=== PATIENT | female | born 1975 | race Caucasian/White ===

== ENCOUNTER 2021-06-20 10:44 | Inpatient (IN) | payer BC, SELFPAY ==
[2021-06-20] VITALS (9 sets, daily range): BP systolic 118–143; BP diastolic 68–76; PULSE 57–100; RESP 16–20; TEMP 36.6–36.9; O2SAT 96–100; BMI 24.7
--- NOTE | 2021-06-20 11:08 | CT_ITS ---
WS: [id number] CT ABDOMEN PELVIS TECHNIQUE: Contrast-enhanced CT of the abdomen and pelvis with coronal and sagittal reformatted image s. CLINICAL INFORMATION: abd pain COMPARISON: None. DLP: 1053.[address] scans at [facility] use at least one of these dose optimization techniques: automated e xposure control; mA and/or kV adjustment per patient size (includes targeted exams where dose is matc hed to clinical indication); or iterative reconstruction. FINDINGS: Diffuse heterogeneous uterine enhancement. Marked lobulated enlargement of the uterus most compatible with fibroid uterus with multiple enhancing fibroids. Markedly enlarged uterus measures 8.4 x 11.4 x 12.9 CM. Large uterine fibroids impinge on the dorsal aspect of the bladder and cervix. Largest hete rogeneously enhancing fibroids measure 6 to 8 cm with low-attenuation changes. Leiomyosarcoma is not excluded. Recommend GOLD NIB GRINDER consultation for resection. LEFT ovary is not well visualized. RIGHT ovarian cyst measuring 1.8 x 1.8 cm. Distended fluid-filled loops of small bowel in the midabdomen and LEFT upper quadrant with air-fluid levels. Small bowel loops measure up to 3.1 cm compatible with partial small bowel obstruction. This is likely due to compression from the lobulated fibroid uterus or prior adhesions. Transition to norm al caliber small bowel loops near the dome of the uterus. Small amount of free fluid in the [place]-de-[place] c. Normal sigmoid colon. Colon appears decompressed. RIGHT adnexal cyst measuring 1.8 x 1.8 cm. Lung bases are well aerated. Mild diffuse fatty infiltration liver. Mild intrahepatic biliary duct di latation. Mild prominence of the common bile duct measuring 7 mm. Gallbladder appears normal. Normal portal vein and splenic vein. Small amount of perihepatic fluid. Normal spleen. Small esophageal hiat al hernia. Tiny fat-containing umbilical hernia. Normal pancreatic parenchymal enhancement. Normal ca liber abdominal aorta. Celiac and SMA are patent. Adrenal glands are normal. Normal renal parenchymal enhancement. No hydronephrosis. Disc space narrow ing L5-S1. Mild disc bulging L4-L5. CT/CT abdomen pelvis w con* [id number] IMPRESSION: 1. Markedly enlarged heterogeneous lobulated uterus most consistent with fibro id uterus. Numerous large enhancing heterogeneous fibroids. Leiomyosarcoma is n ot excluded. Recommend GOLD NIB GRINDER consultation for resection. 2. LEFT ovary is not well visualized. RIGHT ovarian cystic lesion measuring 1. 8 x 1.8 cm. 3. Large heterogeneous lobular uterus compresses the dorsal aspect of the blad maury and cervix. 4. Small amount of free fluid in the pelvis. 5. Partial small bowel obstruction with air-fluid levels and slightly distende d fluid-filled small bowel in the midabdomen and LEFT upper quadrant. Distal il eum is decompressed. 6. Colon is decompressed. 7. Small esophageal hiatal hernia. 8. Mild intrahepatic biliary duct dilatation. Mild prominence of the common bi le duct measuring 7 mm. No visualized gallbladder calculi. Gallbladder can be f ollowed up with ultrasound. Notified Dez Nieto DO at 06/20/2021 1:21 PM.
--- NOTE | 2021-06-20 11:08 | ECG_ITS ---
[facility] Test Date: 2021-06-20 Pat Name: Genesis David Department: Room: Gender: Female Shift Superintendent: : 1975 Requested By: Dez Garcia Order Number: [id number] Eyad MD: Shruthi Reece M.D. Measurements Intervals [place] Rate: 86 P: 77 OK: 193 QRS: 74 QRSD: 94 T: 55 QT: 385 QTc: 462 Interpretive Statements SINUS RHYTHM LEFT ATRIAL ENLARGEMENT [-0.15mV P-WAVE IN V1/V2] INCOMPLETE RIGHT BUNDLE BRANCH BLOCK [90+ ms QRS DURATION, TERMINAL R IN V1/V2, 40+ ms S IN I/aVL/V4/V5/V6] Compared to ECG 01/04/2016 16:08:16 No significant changes Electronically Signed On 06-20-2021 22:43:35 CDT by Shruthi Reece M.D. [id number]
--- NOTE | 2021-06-20 11:11 | W.ED.ABDPA2 ---
HPI - Abdominal Pain General: Chief Complaint: Abdominal Pain Stated Complaint: stomach pain/vomiting Time Seen by Provider: 06/20/21 11:08 Source: patient Mode of arrival: ambulatory Limitations: no limitations History of Present Illness: 45-year-old female comes in complaining of 2 days of nausea vomiting generalized epigastric periumbilical abdominal pain which does not localize really well. She not had any hematochezia or melena but has had quite a bit of bilious-like vomiting. Denies dysuria urgency or frequency or fever MD elicited complaint: abdominal pain Pertinent past history: none Onset (ago): day(s) (2) Location: Epigastric and Periumbilical Severity: mild Quality: cramping Radiation: none Migration to: no migration Exacerbating factors: eating, movement and other (palpation) Relieving factors: nothing Associated Symptoms: Reports GI cramping, nausea and poor appetite; Denies anorexia, belching, bloating, change in bowel habits, change in stool character, chills, coffee ground emesis, constipation, diarrhea, dyspepsia, dysuria, excessive flatus, fever(s), heartburn, hematochezia, hematuria, hematemesis, fecal incontinence, loose stools, melena, syncope and vomiting Related Data: Date of Last Menstrual Period: 06/09/21 Review of Systems Const: Denies: fever(s) or chills ENMT: Denies: throat pain, ear or mastoid pain, nasal discharge or nasal congestion Card: Denies: syncope Resp: Denies: dyspnea, productive cough or non-productive cough GI: Reports: nausea and GI cramping; Denies: vomiting, hematemesis, coffee ground emesis, heartburn, diarrhea, constipation, bloating, belching, excessive flatus, fecal incontinence, change in bowel habits, change in stool character, hematochezia or melena : Denies: dysuria or hematuria Skin/Breast: Denies: rash or pruritus PFSH ED PFSH: Medical History No pertinent past medical history Surgical History Hx of section Social History Smoking and tobacco status: never smoked Alcohol intake: unknown Female Reproductive History: Date of last menstrual period: 06/09/21 Physical Exam Const: GENERAL APPEARANCE: cooperative and comfortable ORIENTATION/CONSCIOUSNESS: Yes awake, Yes oriented to person, Yes oriented to place and Yes oriented to time HENMT: COMMON NORMALS: normocephalic, atraumatic and hearing grossly normal bilaterally HEAD & SCALP: normocephalic and atraumatic Neck/C-Spine: COMMON NORMALS: no JVD Resp: COMMON NORMALS: normal respiratory effort, No retractions, No use of accessory muscles and clear to auscultation bilaterally AUSCULTATION: clear to auscultation bilaterally Cardio: COMMON NORMALS: no JVD, regular rate, regular rhythm and No murmurs present (Cardio) RATE: regular rate RHYTHM: regular rhythm GI: COMMON NORMALS: No hepatosplenomegaly present AUSCULTATION: Yes Hypoactive bowel sounds present PALPATION: Yes Tenderness to palpation present (GI) (difuse), No Guarding due to palpation present (GI) and Yes No hepatosplenomegaly present : COMMON NORMALS: Yes no CVA tenderness BLADDER/KIDNEY EXAM: Yes no CVA tenderness Back/Pelvis: COMMON NORMALS: no CVA tenderness Extremity: COMMON NORMALS: normal to inspection, capillary refill normal, no clubbing, cyanosis or edema, no calf tenderness and no pedal edema Neuro: SENSORIUM/ORIENTATION: Yes oriented to person, Yes oriented to place and Yes oriented to time Skin: COMMON NORMALS: no rashes or lesions noted GENERAL SKIN EXAM: no rashes or lesions noted Course Vital Signs: Vital signs: Vital Signs Temperature 97.9 F 06/20/21 10:59 Pulse Rate 79 06/20/21 13:04 Respiratory Rate 16 06/20/21 13:04 Blood Pressure 120/72 06/20/21 13:04 Pulse Oximetry 99 06/20/21 13:04 MDM - Abdominal Pain Medical Decision Making Discussed with Dr. Alfa Matthews and Dr. Mcdonald as well as Dr. Romo. Dr. Grimm was concerned that the enlarged uterus was causing a bowel obstruction occurring and does not believe that that is actually the case ultimately decided to admit to the hospitalist service consult surgery and Guynn. The plan at this point is to treat as a small bowel obstruction if surgery is pursued then gynecology may perform hysterectomy in the same setting. Patient has an NG we also placed a Parikh since the enlarged uterus significantly compresses her bladder. Orders are written Dr. cadet will be the attending. Medical Records I reviewed the patient's medical records. Lab Data I reviewed the patient's lab results. : 06/20/21 11:30 06/20/21 13:33 Labs/Radiology: Radiology Impressions Abdomen/Pelvis CT 06/20/21 11:08 IMPRESSION: 1. Markedly enlarged heterogeneous lobulated uterus most consistent with fibroid uterus. Numerous large enhancing heterogeneous fibroids. Leiomyosarcoma is not excluded. Recommend CHIEF RESOURCE OFFICER consultation for resection. 2. LEFT ovary is not well visualized. RIGHT ovarian cystic lesion measuring 1.8 x 1.8 cm. 3. Large heterogeneous lobular uterus compresses the dorsal aspect of the bladder and cervix. 4. Small amount of free fluid in the pelvis. 5. Partial small bowel obstruction with air-fluid levels and slightly distended fluid-filled small bowel in the midabdomen and LEFT upper quadrant. Distal ileum is decompressed. 6. Colon is decompressed. 7. Small esophageal hiatal hernia. 8. Mild intrahepatic biliary duct dilatation. Mild prominence of the common bile duct measuring 7 mm. No visualized gallbladder calculi. Gallbladder can be followed up with ultrasound. Notified Dez Nieto DO at 06/20/2021 1:21 PM. Chest X-Ray 06/20/21 13:46 IMPRESSION: Nasogastric tube placement as above. Laboratory Results WBC 4.8 10^3/uL (4.0-10.0) 06/20/21 11:30 RBC 3.89 10^6/uL (4.1-5.3) L 06/20/21 11:30 Hgb 10.1 g/dL (11.5-15.3) L 06/20/21 11:30 Hct 33.5 % (37.0-47.0) L 06/20/21 11:30 MCV 86.1 fl (81-99) 06/20/21 11:30 MCH 26.0 pg (28.0-34.0) L 06/20/21 11:30 MCHC 30.1 g/dL (30.0-36.0) 06/20/21 11:30 RDW 16.0 % (12.1-15.1) H 06/20/21 11:30 Plt Count 143 10^3/cmm (130-400) 06/20/21 11:30 MPV 12.4 fL (7.4-10.4) H 06/20/21 11:30 Neut % (Auto) 84.4 % 06/20/21 11:30 Lymph % (Auto) 11.0 % 06/20/21 11:30 [place] % (Auto) 4.0 % 06/20/21 11:30 Eos % (Auto) 0.0 % 06/20/21 11:30 Baso % (Auto) 0.4 % 06/20/21 11:30 Neut # (Auto) 4.05 10^3/uL (1.8-7.7) 06/20/21 11:30 Lymph # (Auto) 0.5 10^3/uL (0.8-4.8) L 06/20/21 11:30 [place] # (Auto) 0.2 10^3/uL (0.2-0.9) 06/20/21 11:30 Eos # (Auto) 0.0 10^3/uL (0.0-0.8) 06/20/21 11:30 Baso # (Auto) 0.0 10^3/uL (0.0-0.1) 06/20/21 11:30 Nucleated RBC % (auto) 0 % 06/20/21 11:30 Nucleated RBCs # 0.0 /100WBC 06/20/21 11:30 Sodium 138 mmol/L (136-145) 06/20/21 13:33 Potassium 3.7 mmol/L (3.5-5.1) 06/20/21 13:33 Chloride 103 mmol/L (98-107) 06/20/21 13:33 Carbon Dioxide 20 mmol/L (22-29) L 06/20/21 13:33 Anion Gap 18.7 (5-19) 06/20/21 13:33 BUN 11 mg/dL (6-20) 06/20/21 13:33 Creatinine 0.6 mg/dL (0.5-0.9) 06/20/21 13:33 GFR Calculation 107.2 mL/min (90-130) 06/20/21 13:33 Glucose 99 mg/dL (65-115) 06/20/21 13:33 Calculated Osmolality 285 mOsm/kg (285-295) 06/20/21 13:33 Lactic Acid 1.2 mmol/L (0.5-2.2) 06/20/21 11:30 Calcium 9.0 mg/dL (8.5-10.5) 06/20/21 13:33 Total Bilirubin 0.3 mg/dL (0.15-1.2) 06/20/21 13:33 AST 28 U/L (0-32) 06/20/21 13:33 ALT 24 U/L (0-33) 06/20/21 13:33 Alkaline Phosphatase 76 IU/L (35-105) 06/20/21 13:33 Total Protein 7.2 g/dL (6.6-8.7) 06/20/21 13:33 Albumin 3.8 g/dL (3.5-5.2) 06/20/21 13:33 Globulin 3.4 g/dL (1.3-4.6) 06/20/21 13:33 Lipase 62 U/L (13-60) H 06/20/21 13:33 HCG, Qual Negative (Negative) 06/20/21 11:30 Urine Color Yellow (Yellow) 06/20/21 12:01 Urine Appearance Clear (CLEAR) 06/20/21 12:01 Urine pH 5 (5-7) 06/20/21 12:01 Ur Specific [place] 1.020 (1.005-1.030) 06/20/21 12:01 Urine Protein Neg (Negative) 06/20/21 12:01 Urine Glucose (UA) Norm (Normal) 06/20/21 12:01 Urine Ketones 2+ (Negative) H 06/20/21 12:01 Urine Blood Neg (Negative) 06/20/21 12:01 Urine Nitrate Negative (Negative) 06/20/21 12:01 Urine Bilirubin Neg (Negative) 06/20/21 12:01 Urine Urobilinogen Neg mg/dL (Negative) 06/20/21 12:01 Ur Leukocyte Esterase Negative (Negative) 06/20/21 12:01 Discharge Plan Discharge Patient Disposition: Admitted As Inpatient Clinical Impression: Small bowel obstruction, Hx of section, Fibroid, uterine Condition: Stable Prescriptions: No Action No Known Home Medications 0RF Coding Level of Care Code ED Heater Operator for Chg Fwd Exam Comprehensive
[2021-06-20] MEDS: ondansetron 2 mg/ML SDV 2 mL 4 MG IVP ×2 (11:24→17:49)
[2021-06-20] MEDS: morphine 4 mg/mL SDV 1 mL IVP ×3 (11:24→22:37)
[2021-06-20] MEDS: sodium chloride 0.9% 1,000 ML 999 ML IV ×2 (11:25→12:58)
[2021-06-20 11:41] LABS: Basophils % 0.4 %; Hematocrit 33.5 % (37.0-47.0); Hemoglobin 10.1 g/dL (11.5-15.3); Lymphocytes # 0.5 10^3/uL (0.8-4.8); Mean Corpuscular HGB Conc 30.1 g/dL (30.0-36.0); Mean Corpuscular Volume 86.1 fl (81-99); Mean Platelet Volume 12.4 fL (7.4-10.4); Monocytes # 0.2 10^3/uL (0.2-0.9); Neutrophils # 4.05 10^3/uL (1.8-7.7); Neutrophils % 84.4 %; Nucleated Red Blood Cells % 0 %; Platelet Count 143 10^3/cmm (130-400); Red Blood Count 3.89 10^6/uL (4.1-5.3); White Blood Count 4.8 10^3/uL (4.0-10.0)
[2021-06-20 11:50] LABS: Lactic Sepsis W/Reflex 1.2 mmol/L (0.5-2.2)
[2021-06-20 11:51] LABS: HCG, Serum Qual Negative (Negative)
[2021-06-20 12:08] LABS: Add Urine Microscopic? NO; Charge for UA Resulting for Rev
[2021-06-20 12:28] LABS: Bilirubin Urine Neg (Negative); Blood Urine Neg (Negative); Glucose Urine UA Norm (Normal); Ketones Urine 2+ (Negative); Leukocyte Esterase Urine Negative (Negative); Nitrate Urine Negative (Negative); Protein Urine Neg (Negative); Urine Appearance Clear (CLEAR); Urine Color Yellow (Yellow); Urobilinogen Urine Neg (Negative); pH Urine 5 (5-7)
[2021-06-20] MEDS: iohexol 300 mg/mL 100 mL Btl IV (12:34)
[2021-06-20] MEDS: morphine 4 mg/mL SDV 1 mL 6 MG IVP (13:18)
--- NOTE | 2021-06-20 13:46 | XR_ITS ---
WS: [id number] XR chest 1V portable [id number] REASON FOR EXAM: NG TUBE PLACEMENT FINDINGS: Nasogastric tube is been placed. The tip is in a position consistent with the body of the stomach. No chest abnormality identified. XR/XR chest 1V portable [id number] IMPRESSION: Nasogastric tube placement as above.
[2021-06-20 14:01] LABS: Alanine Aminotransferase 24 U/L (0-33); Albumin Level 3.8 g/dL (3.5-5.2); Alkaline Phosphatase 76 IU/L (35-105); Anion Gap 18.7 (5-19); Aspartate Amino Transferase 28 U/L (0-32); Blood Urea Nitrogen 11 mg/dL (6-20); Carbon Dioxide 20 mmol/L (22-29); Chloride 103 mmol/L (98-107); Globulin 3.4 g/dL (1.3-4.6); Glomerular Filtration Rate 107.2 mL/min (90-130); Glucose 99 mg/dL (65-115); Lipase 62 U/L (13-60); Osmolality Calculated 285 mOsm/kg (285-295); Potassium 3.7 mmol/L (3.5-5.1); Sodium 138 mmol/L (136-145); Total Bilirubin 0.3 mg/dL (0.15-1.2); Total Protein 7.2 g/dL (6.6-8.7)
--- NOTE | 2021-06-20 14:31 | P.CONIM_ITS ---
Providers/Reason For Consult Consulting Physician/Specialty*: Dorian Mcdonald MD Reason for Consult*: Small bowel obstruction Requesting Physician: Dr. Nieto History of Present Illness History of Present Illness Chief Complaint: Abdominal pain History of present illness: Ms. Genesis David is a pleasant 45 year old female presents to the emergency department with worsening abdominal pain for the past couple of days mostly Dull associated nausea and vomiting and she does report history of chronic back pain as well, the pain mostly in the center part of the abdomen and the lower compartment, nothing seems to make it better or worse except laying flat and massaging her abdomen. Patient did have a bowel movement and passed gas ye sterday evening. As her pain got worse came to the ER for further work-up and blood work was done showed WBC count of 4.8, hematocrit 33.5, platelet 143. Sodium 138 potassium 3.7 and serum creatinine 0.6. Patient also undergone a CT scan of the abdomen pelvis that did show 1.? Markedly enlarged heterogeneous lobulated uterus most consistent with fibroid uterus. Numerous large enhancing heterogeneous fibroids. Leiomyosarcoma is not excluded. Recommend REGULATOR OPERATOR consultation for resection. 2.? LEFT ovary is not well visualized. RIGHT ovarian cystic lesion measuring 1.8 x 1.8 cm. 3.? Large heterogeneous lobular uterus compresses the dorsal aspect of the bladder and cervix. 4.? Small amount of free fluid in the pelvis. 5.? Partial small bowel obstruction with air-fluid levels and slightly distended fluid-filled small bowel in the midabdomen and LEFT upper quadrant. Distal ileum is decompressed. 6.? Colon is decompressed. 7.? Small esophageal hiatal hernia. 8.? Mild intrahepatic biliary duct dilatation. Mild prominence of the common bile duct measuring 7 mm. No visualized gallbladder calculi. Gallbladder can be followed up with ultrasound. From further history patient reports that she has been having pain going on for years and over the past couple of days got worse. She did have a gynecological procedure before in the form of left oophorectomy but she did lose her insurance for quite some time and she is not aware of any uterine pathology. Patient has never been hospitalized before and requiring NG placement General surgery was consulted due to the concern of potential bowel obstruction. Patient was seen and evaluated emergency department room #14. ? Review of Systems General: Reports: 10 or more systems reviewed and unremarkable except in HPI and below Medications/Allergies Home Medications Medication Instructions Recorded Confirmed Last Taken Type No Known Home Medications 06/20/21 06/20/21 Unknown History Allergies Allergy/AdvReac Type Severity Reaction Status Date / Time No Known Allergies Allergy Verified 06/20/21 14:54 PFSH Acute PFSH: Medical History No pertinent past medical history Surgical History Hx of section Social History Smoking and tobacco status: never smoked Alcohol intake: unknown Female Reproductive History: Date of last menstrual period: 06/09/21 Vitals/I&O/Wt Last Vital Signs Temp 97.9 F 06/20/21 10:59 Pulse 79 06/20/21 13:04 Resp 16 06/20/21 13:04 BP 120/72 06/20/21 13:04 Pulse Ox 99 06/20/21 13:04 06/19/21 06/20/21 06/20/21 22:59 06:59 14:59 Intake Total 1000 / 1000 Balance 1000 / 1000 Weight last 48 hrs Weight 140 lb Physical Exam Const: COMMON NORMALS: no acute distress and patient oriented x3 GENERAL APPEARANCE: cooperative ORIENTATION/CONSCIOUSNESS: Yes awake, Yes oriented to person, Yes oriented to place and Yes oriented to time HENMT: COMMON NORMALS: normocephalic HEAD & SCALP: normocephalic NOSE: Other nasal findings present (NG in place) Eye: COMMON NORMALS: Equal, round and reactive pupils present and no scleral icterus PUPIL: Yes Equal, round and reactive pupils present Lymph: LYMPHATIC: no lymphadenopathy noted Chest: COMMONS NORMALS: normal inspection of the chest Resp: COMMON NORMALS: normal respiratory effort and clear to auscultation bilaterally AUSCULTATION: clear to auscultation bilaterally Cardio: COMMON NORMALS: S1 normal heart sound present and S2 normal heart sound present; negative for No murmurs present (Cardio) HEART SOUNDS: S1 normal heart sound present and S2 normal heart sound present GI: COMMON NORMALS: Soft to palpation; negative for No hepatosplenomegaly present INSPECTION: Yes normal to inspection PALPATION: Yes Soft to palpation, No Firmness to palpation present (GI), No Tenderness to palpation present (GI), No Guarding due to palpation present (GI), No Rigid due to palpation and No No hepatosplenomegaly present OTHER: Palpable mass in the suprapubic area reaches all the way midway between the pubis and the umbilicus likely underlying enlarged uterus, firm in consistency yet tender with limited mobility, nonpulsatile. Neuro: COMMON NORMALS: patient oriented x3 SENSORIUM/ORIENTATION: Yes oriented to person, Yes oriented to place and Yes oriented to time Psych: COMMON NORMALS: mental status grossly normal Skin: COMMON NORMALS: no rashes or lesions noted GENERAL SKIN EXAM: no rashes or lesions noted Data : 06/20/21 11:30 06/20/21 13:33 A&P Assessment and plan (1) Partial small bowel obstruction: After thorough history physical examination and reviewing the chart and images with my personal interpretation. Of the CT scan of the abdomen pelvis likely the enlarged uterus is causing some compression on the bowels that causing a potential partial bowel obstruction. I cannot appreciate stools in the rectum and gas, technically the patient is not completely obstructed. I do not see distinct transition point on the CT scan. No acute surgical intervention required at this point NG to low intermittent wall suction Repeat labs in the morning IV fluid resuscitation Strict I's and O's Repeated physical examination We will defer to gynecology service for further evaluation of patient's uterine pathology Assurance and education All questions have been answered and all concerns have been addressed to patient's satisfaction. Status: Acute Consult Attestations Medical Necessity Statement: Per admitting service Time Spent in Patient Care: 16 - 35 minutes Coding Level of Care Code Acute Marketing Development Representative for Laura Robledo Diagnoses Partial small bowel obstruction K56.600
--- NOTE | 2021-06-20 15:53 | PM.HP ---
Providers/Chief Complaint Admitting Physician: Kristen King MD Chief Complaint: stomach pain/vomiting History of Present Illness Genesis David is a 45 year old female who presented to the emergency room with abdominal pain, nausea, vomiting. She has had intermittent mildly similar symptoms off and on though never to this degree. She has had upper abdominal pain described as a discomfort for several days. She has a fairly high pain threshold and was uncomfortable but did not think much of it. Pain radiated into her back. Nausea developed a couple of days ago along with a sensation of being too full to eat. Yesterday she started vomiting and has had multiple episodes of vomiting in the last 24 hours. She denies any fever. She has had decreased soft formed stool output over the last few days compared to usual. Last bowel movement was yesterday morning and it was soft. No flatus since then. She describes decreased urine output at times feeling like she has to go evidently having a small amount of urine come out. No reports of bowel or bladder incontinence. The pain and frequency of vomiting became severe enough that her insisted that she come to the emergency room for evaluation. Here she was found to have partial small bowel obstruction on CT imaging with a significantly enlarged and lobular uterus compressing on both bowel and bladder. Hospitalist were called for admission. NG tube was placed and Parikh catheter was placed. Both surgery and PRICING CONSULTANT have been consulted to assist with management. Patient's last menstrual cycle was around 3 weeks ago. She describes quite irregular periods over the last 3 years, maybe up to 5 years. Describes periods lasting from a week to 3 weeks at a time, sometimes even longer. Interval between cycles will be a couple of days to a few weeks. Describes using 2 packages of 50-60 pads per cycle. She has never sought medical care for this primarily because it became a definitive problem during a timeframe in which she did not have insurance as well as around the time that COVID hit. She says that after her oophorectomy she had fairly normal periods lasting 3 to 5 days and what she would describe is normal flow until sometime between 3 to 5 years ago. She took control pills for several months after her oophorectomy but has not been on any hormonal treatments since then. 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 She has been working overtime for quite a while at the facility. In the last few weeks she has felt overall more tired than usual. She wears an N95 mask and until recently also a face shield for every shift. She is not Covid vaccinated. No recent Covid symptoms. Review of Systems Const: Reports: change in appetite and fatigue; Denies: fever(s), chills or change in weight Eyes: Reports: blurry vision (During NG tube placement) ENMT: Reports: other (Frequently eats ice/craves ice); Denies: throat pain or nasal congestion Card: Reports: other (Describes chest wall pain which she thinks is from her bra); Denies: chest pain, palpitations, edema, dyspnea on exertion or orthopnea Resp: Reports: dyspnea (From the degree of nausea and discomfort otherwise not SOB); Denies: productive cough, non-productive cough or wheezing GI: Reports: abdominal pain, nausea, vomiting, early satiety, bloating and change in bowel habits; Denies: diarrhea, constipation or fecal incontinence : Reports: difficulty voiding (Sometimes feels like she has to urinate but only urinates a small amount), oliguria, irregular period and metrorrhagia; Denies: dribbling, hematuria or vaginal bleeding (None presently though describes heavy prolonged periods) Musc: Reports: back pain Skin/Breast: Denies: rash, pruritus or sores Neuro: Reports: dizziness (Maybe a little bit with nausea/vomiting); Denies: numbness in extremities, weakness in extremities or difficulty walking Psych: Denies: anxiety or depression Endo: Reports: hot flashes Anmol/Lymph: Denies: easy bruising or easy bleeding Medications/Allergies Home Medications Medication Instructions Recorded Confirmed Last Taken Type No Known Home Medications 06/20/21 06/20/21 Unknown History Allergies Allergy/AdvReac Type Severity Reaction Status Date / Time No Known Allergies Allergy Verified 06/20/21 14:54 PFSH Acute PFSH: Medical History (Updated 06/20/21 @ 17:56 by Kristen King MD) History of ovarian cyst left oophorectomy secondary to cysts, known cyst on right ovary Surgical History (Updated 06/20/21 @ 17:03 by Kristen King MD) History of left oophorectomy due to ovarian cysts History of tonsillectomy History of wisdom tooth extraction Hx of section Family History (Updated 06/20/21 @ 17:06 by Kristen King MD) Mother Uterine enlargement History of hysterectomy Grandmother Uterine enlargement History of hysterectomy Father Murmur Denies family history of CAD (coronary artery disease) Anesthesia complication Bleeding disorder Uterine cancer Social History (Updated 06/20/21 @ 17:05 by Kristen King MD) Smoking and tobacco status: never smoked Alcohol intake: current Alcohol intake frequency: holidays/special occasions only Substance/Drug Use: never Household members: spouse Current occupational status: employed 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 [employer] Female Reproductive History: Date of last menstrual period: 06/09/21 control method: none : 1 Para: 1 Vitals/I&O/Wt Last Vital Signs Temp 97.9 F 06/20/21 10:59 Pulse 100 06/20/21 15:00 Resp 16 06/20/21 15:00 BP 118/68 06/20/21 15:00 Pulse Ox 100 06/20/21 15:00 06/20/21 06/20/21 06/20/21 06:59 14:59 22:59 Intake Total 1000 / 1000 Balance 1000 / 1000 Weight last 48 hrs Weight 63.503 kg Physical Exam Narrative: Constitutional: Awake and alert, flushed cheeks, cooperative, looks like she does not feel well HEENT: Normocephalic, atraumatic, pupils are equal reactive, mild tearing noted of the eyes, NG tube is in place in the left nares, oropharynx with dry mucous membranes, good dentition, pale mucosa Neck: Supple Respiratory: Clear to auscultation bilaterally Cardiovascular: Regular rate and rhythm, systolic murmur noted throughout the precordium but loudest at right upper sternal border radiating into the neck, 2+ pulses Abdomen: Soft, mild epigastric tenderness, lumpy fullness noted in the lower abdominal/suprapubic area, absent bowel sounds during my evaluation : Parikh catheter is noted Extremities: No pitting edema or calf tenderness Skin: Pale other than her flushed cheeks Neuro: Speech clear, face symmetric, moves all extremities, handgrip equal, no abnormal movements Psych: Normal affect Urinary Catheter Management: Parikh: Cath Placed During This Visit: yes Urinary Catheter Date of Insertion: 06/20/21 Urinary Catheter Time of Insertion: 14:55 Data : 06/20/21 11:30 06/20/21 13:33 Other Labs: Radiology Impressions Abdomen/Pelvis CT 06/20/21 11:08 IMPRESSION: 1. Markedly enlarged heterogeneous lobulated uterus most consistent with fibroid uterus. Numerous large enhancing heterogeneous fibroids. Leiomyosarcoma is not excluded. Recommend VISUALIZATION DEVELOPER consultation for resection. 2. LEFT ovary is not well visualized. RIGHT ovarian cystic lesion measuring 1.8 x 1.8 cm. 3. Large heterogeneous lobular uterus compresses the dorsal aspect of the bladder and cervix. 4. Small amount of free fluid in the pelvis. 5. Partial small bowel obstruction with air-fluid levels and slightly distended fluid-filled small bowel in the midabdomen and LEFT upper quadrant. Distal ileum is decompressed. 6. Colon is decompressed. 7. Small esophageal hiatal hernia. 8. Mild intrahepatic biliary duct dilatation. Mild prominence of the common bile duct measuring 7 mm. No visualized gallbladder calculi. Gallbladder can be followed up with ultrasound. Chest X-Ray 06/20/21 13:46 IMPRESSION: Nasogastric tube placement as above. Laboratory Results WBC 4.8 10^3/uL (4.0-10.0) 06/20/21 11:30 RBC 3.89 10^6/uL (4.1-5.3) L 06/20/21 11:30 Hgb 10.1 g/dL (11.5-15.3) L 06/20/21 11:30 Hct 33.5 % (37.0-47.0) L 06/20/21 11:30 MCV 86.1 fl (81-99) 06/20/21 11:30 MCH 26.0 pg (28.0-34.0) L 06/20/21 11:30 MCHC 30.1 g/dL (30.0-36.0) 06/20/21 11:30 RDW 16.0 % (12.1-15.1) H 06/20/21 11:30 Plt Count 143 10^3/cmm (130-400) 06/20/21 11:30 MPV 12.4 fL (7.4-10.4) H 06/20/21 11:30 Neut % (Auto) 84.4 % 06/20/21 11:30 Lymph % (Auto) 11.0 % 06/20/21 11:30 [place] % (Auto) 4.0 % 06/20/21 11:30 Eos % (Auto) 0.0 % 06/20/21 11:30 Baso % (Auto) 0.4 % 06/20/21 11:30 Neut # (Auto) 4.05 10^3/uL (1.8-7.7) 06/20/21 11:30 Lymph # (Auto) 0.5 10^3/uL (0.8-4.8) L 06/20/21 11:30 [place] # (Auto) 0.2 10^3/uL (0.2-0.9) 06/20/21 11:30 Eos # (Auto) 0.0 10^3/uL (0.0-0.8) 06/20/21 11:30 Baso # (Auto) 0.0 10^3/uL (0.0-0.1) 06/20/21 11:30 Nucleated RBC % (auto) 0 % 06/20/21 11:30 Nucleated RBCs # 0.0 /100WBC 06/20/21 11:30 Sodium 138 mmol/L (136-145) 06/20/21 13:33 Potassium 3.7 mmol/L (3.5-5.1) 06/20/21 13:33 Chloride 103 mmol/L (98-107) 06/20/21 13:33 Carbon Dioxide 20 mmol/L (22-29) L 06/20/21 13:33 Anion Gap 18.7 (5-19) 06/20/21 13:33 BUN 11 mg/dL (6-20) 06/20/21 13:33 Creatinine 0.6 mg/dL (0.5-0.9) 06/20/21 13:33 GFR Calculation 107.2 mL/min (90-130) 06/20/21 13:33 Glucose 99 mg/dL (65-115) 06/20/21 13:33 Calculated Osmolality 285 mOsm/kg (285-295) 06/20/21 13:33 Lactic Acid 1.2 mmol/L (0.5-2.2) 06/20/21 11:30 Calcium 9.0 mg/dL (8.5-10.5) 06/20/21 13:33 Total Bilirubin 0.3 mg/dL (0.15-1.2) 06/20/21 13:33 AST 28 U/L (0-32) 06/20/21 13:33 ALT 24 U/L (0-33) 06/20/21 13:33 Alkaline Phosphatase 76 IU/L (35-105) 06/20/21 13:33 Total Protein 7.2 g/dL (6.6-8.7) 06/20/21 13:33 Albumin 3.8 g/dL (3.5-5.2) 06/20/21 13:33 Globulin 3.4 g/dL (1.3-4.6) 06/20/21 13:33 Lipase 62 U/L (13-60) H 06/20/21 13:33 HCG, Qual Negative (Negative) 06/20/21 11:30 Urine Color Yellow (Yellow) 06/20/21 12:01 Urine Appearance Clear (CLEAR) 06/20/21 12:01 Urine pH 5 (5-7) 06/20/21 12:01 Ur Specific [place] 1.020 (1.005-1.030) 06/20/21 12:01 Urine Protein Neg (Negative) 06/20/21 12:01 Urine Glucose (UA) Norm (Normal) 06/20/21 12:01 Urine Ketones 2+ (Negative) H 06/20/21 12:01 Urine Blood Neg (Negative) 06/20/21 12:01 Urine Nitrate Negative (Negative) 06/20/21 12:01 Urine Bilirubin Neg (Negative) 06/20/21 12:01 Urine Urobilinogen Neg mg/dL (Negative) 06/20/21 12:01 Ur Leukocyte Esterase Negative (Negative) 06/20/21 12:01 A&P Assessment and plan (1) Partial small bowel obstruction: Associated with pain, nausea, vomiting, change in bowel function and dehydration Imaging report from radiology appears to show this is due to compression from uterine enlargement though unable to rule out adhesions or other pathology beyond this presently Status: Acute (2) Enlarged uterus: Lobulated, fibroid appearance compressing bowel and bladder on imaging studies Reports a family history of significant uterine enlargement but no history of known uterine cancer Status: Acute (3) Murmur: Noted on examination, likely functional murmur although loudest in the upper sternal border radiating into the neck concerning for aortic stenosis Status: Acute (4) Anemia: Normocytic iron deficiency secondary to chronic losses from menorrhagia Suspect current values are higher than baseline due to dehydration Describes classic pica Status: Acute Qualifiers: Anemia type: iron deficiency Iron deficiency anemia type: chronic blood loss Qualified Code(s): D50.0 - Iron deficiency anemia secondary to blood loss (chronic) (5) Menorrhagia with irregular cycle: Going on for several years without work-up to date nor attempted treatment due to lack of insurance followed by impact of Covid pandemic Status: Chronic Plan Mild intrahepatic billiary ductal dilitation with common bile duct at 7mm, without abnormal liver enzymes Inpatient admission Surgical consultation PRICING CONSULTANT consultation Continue NG tube management KUB in the morning Parikh catheter secondary to bladder compression and need to monitor urine output IV fluids Antiemetics and pain medication as needed Bowel regimen when okay to begin otherwise Type and screen, check TIBC Echocardiogram SCDs for DVT prophylaxis Presently no pharmacological DVT prophylaxis secondary to potential need for surgery and reported history of significant menorrhagia and anemia PPI for GI prophylaxis Supportive care otherwise Anticipate discharge home with outpatient follow-up with SHELL MACHINE OPERATOR and possibly surgery, establishment of PCP who can follow up iron levels, cardiac murmur and obtain outpatient GB ultrasound if subsequently indicated Reviewed with patient diagnosis of partial small bowel obstruction, typical management of bowel obstruction with NG tube and attempt at conservative management as potential need for surgical intervention. We also discussed the enlarged uterus with a lobular appearance suggestive of uterine fibroids although unable to rule out cancer via imaging study. We talked about the possibility of hysterectomy either during hospital stay or at some point after discharge depending on clinical course. Reviewed the roles of both PRICING CONSULTANT and surgery in her care and gave her an opportunity to ask questions, which were answered. She was in agreement with plans of care as described above. Case management to assist with finding PCP and other follow up arrangments Full code Attestations Medical Necessity Statement*: Anticipated stay greater than two midnights in a patient with a partial small bowel obstruction and significantly enlarged uterus as potential cause. Currently for conservative management with NG tube placement and close monitoring and other care as noted above. Coding Level of Care Code Acute Social Work Specialist for Chg Fwd Diagnoses Partial small bowel obstruction K56.600 Enlarged uterus N85.2 Anemia D50.0 Anemia type: iron deficiency Iron deficiency anemia type: chronic blood loss Menorrhagia with irregular cycle N92.1 Murmur R01.1
--- NOTE | 2021-06-20 17:17 | USCV_ITS ---
Genesis David Age: 45 Gender: F : 1975 Exam Date: 06/20/2021 20:39 Ordering Phys: Kristen King MD Technologist: Khris Ahuja Exam Location: [facility] Indication: murmur/preop/sob BP: / HR: 81 Rhythm: Sinus Technical Quality: Adequate MEASUREMENTS (Male / Female) Normal Values 2D ECHO LV Diastolic Diameter PLAX 4.2 cm 4.2 - 5.9 / 3.9 - 5.3 cm LV Systolic Diameter PLAX 2.0 cm IVS Diastolic Thickness 1.4 cm 0.6 - 1.0 / 0.6 - 0.9 cm IVS Systolic Thickness 1.4 cm LVPW Diastolic Thickness 1.6 cm 0.6 - 1.0 / 0.6 - 0.9 cm LVPW Systolic Thickness 1.6 cm LVOT Diameter 1.6 cm LV Ejection Fraction 2D Teich 83.7 % LV Ejection Fraction MOD 2C 78.6 % LV Ejection Fraction 2C AL 82.3 % LA Diameter 2.7 cm LA Width 2.6 cm LA Height 4.3 cm RA Width 3.6 cm RA Height 3.4 cm Aorta at Sinotubular Diameter 2.0 cm M-MODE Aortic Annulus Diameter 2.3 cm LA Ao Ratio MM 1.5 MV E Point Septal Separation 0.9 cm DOPPLER AV Peak Velocity 163.3 cm/s LVOT Peak Velocity 134.0 cm/s AV Area Cont Eq vti 1.9 cm squared AV Area Cont Eq pk 1.7 cm squared MV Peak Velocity 126.0 cm/s MV Area PHT 4.6 cm squared Mitral E to A Ratio 1.2 MV E' Velocity 69.5 cm/s Mitral E to MV E' Ratio 12.8 Mitral E to LV E' Lateral Ratio 11.6 Mitral E to LV E' Septal Ratio 14.3 TR Peak Velocity 125.3 cm/s TR Peak Gradient 6.3 mmHg TR Mean Velocity 87.6 cm/s TR Mean Gradient 3.4 mmHg TR Velocity Time Integral 27.6 cm Right Atrial Pressure 5.0 mmHg Pulmonary Artery Systolic Pressu 11.3 mmHg PV Peak Velocity 99.0 cm/s RV Acceleration Time 0.2 s RV Ejection Time 0.3 s RV AcT/ET 0.4 FINDINGS Left Ventricle Normal left ventricular size, systolic function and wall thickness, with no regional wall motion abnormalities. Left ventricular ejection fraction is estimated at 75%. Normal diastolic function. Right Ventricle Normal right ventricular size and systolic function. Right ventricular systolic pressure 11.3 mmHg. Right Atrium Normal right atrial size. Right atrial pressure estimated at 3 mmHg. Left Atrium Normal left atrial size. Mitral Valve Structurally normal mitral valve. No mitral valve stenosis. No significant mitral valve regurgitation. Aortic Valve Structurally normal trileaflet aortic valve. No aortic valve stenosis. No aortic valve regurgitation. Tricuspid Valve Structurally normal tricuspid valve. No tricuspid valve stenosis. Trace tricuspid valve regurgitation. Pulmonic Valve Structurally normal pulmonic valve. No pulmonary valve stenosis. Trace pulmonary valve regurgitation. Pericardium No pericardial effusion. Aorta Normal-sized aortic root. Normal-sized inferior vena cava with normal respiratory variation. CONCLUSIONS 1. Normal left ventricular size, systolic function and wall thickness, with no regional wall motion abnormalities. Left ventricular ejection fraction is estimated at 75%. Normal diastolic function. 2. Normal right ventricular size and systolic function. 3. No significant valvular abnormality. 4. Normal pulmonary artery pressure. 5. No prior similar studies to compare. Lynnette Rodriguez MD (Electronically Signed) Final Date: 21 June 2021 10:48 S
--- NOTE | 2021-06-20 17:35 | PM.OBGYHP ---
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 She states that the upper abdominal pain started on Saturday-06/18/2021 however the nausea and vomiting started the evening of 06/19/2021 which is why she presented to the emergency room. CT scan was performed which showed partial small bowel obstruction but during this evaluation she was noted to have an enlarged uterus. There was some concern as to if the uterus was causing the small bowel obstruction and gynecology was consulted. --- Patient states that she is always had very heavy cycles and was planning on getting this evaluated however work was very busy and she is planning on getting this evaluated towards the end of this year or next year when [place] was hired at her work. She also reports having a lot of cramping. Did not have insurance and so has not been seen or had a gynecological visit since probably 1999. Review of Systems General: Reports: 10 or more systems reviewed and unremarkable except in HPI and below Const: Reports: fatigue; Denies: fever(s), chills, change in appetite, change in weight, malaise or change in sleep pattern Eyes: Denies: change in vision, eye discomfort, eye discharge or seeing flashes ENMT: Denies: throat pain, odynophagia, hoarseness, bleeding gums, ear discharge, nasal discharge or nasal congestion Card: Denies: chest pain, irregular heart rhythm, edema, swelling of feet/ankles, dyspnea on exertion or leg pain with exertion Resp: Denies: dyspnea, productive cough, wheezing or chest congestion GI: Reports: abdominal pain, nausea and vomiting; Denies: heartburn, diarrhea, constipation, change in bowel habits or hematochezia : Reports: dysmenorrhea and change in menstrual flow; Denies: flank pain, dysuria, urinary frequency, urinary urgency, urinary incontinence, genital lesions, vaginal odor, vaginal bleeding, vaginal discharge, prolapse symptoms, dyspareunia or sexual dysfunction Musc: Denies: neck pain, back pain, joint pain, joint swelling or muscle cramps Skin/Breast: Denies: rash, pruritus, breast tenderness, nipple discharge or breast mass Neuro: Denies: headache(s), numbness in extremities or seizure-like activity Psych: Denies: anxiety, depression, mood swings or change in appetite Endo: Denies: cold intolerance, flushing, hot flashes or change in body appearance Anmol/Lymph: Denies: easy bruising, easy bleeding or enlarged lymph nodes All/Imm: Denies: urticaria, tongue swelling, acute wheezing or itchy eyes Medications/Allergies Home Medications Medication Instructions Recorded Confirmed Last Taken Type ferrous sulfate 325 mg (65 mg 325 mg PO DAILY #90 tab 06/22/21 Unknown Rx iron) tablet (Feosol) folic acid 1 mg tablet 1 mg PO DAILY #60 tab 06/22/21 Unknown Rx Allergies Allergy/AdvReac Type Severity Reaction Status Date / Time No Known Allergies Allergy Verified 06/20/21 14:54 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 She states that the ovarian cyst was the size of a cantaloupe. 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 She states that since about 2019 her cycles have been steadily getting heavier and more cramping Sexual History: Sexual History Comment: Deferred today STD History Comment: Denies sexually transmitted diseases Contraception: Contraception History Comment: Has used control pills 3 to 4 months at the age of 20. Denies any hormone use since then. History History History 1 Term 1 Miscarriages/Ectopic 0 0 Living Children 1 Other History: CD X 1 (1995) Vitals/I&O/Wt Last Vital Signs Temp 97.9 F 06/22/21 17:28 Pulse 92 06/22/21 17:28 Resp 14 06/22/21 17:28 BP 133/71 06/22/21 17:28 Pulse Ox 98 06/22/21 17:28 Physical Exam Narrative: General: well developed, appears tired and fatigued Neuro/Psych: alert, oriented to time, place and person. Heart: S1-S2 heard, regular rate and rhythm.? Possible soft systolic murmur Lungs: Clear to auscultation bilaterally. Breast: Deferred Abdomen: Soft, nontender, no rebound, no guarding--firm mass noted infraumbilically almost 2 fingerbreadths below the umbilicus, no hepatosplenomegaly, small umbilical hernia Legs: No pedal edema no calf tenderness. Negative Homans sign Back: No CVA tenderness Skin: Normal over abdomen---Pfannenstiel scar from previous noted. Pelvic exam-deferred Urinary Catheter Management: Parikh: Cath Placed During This Visit: yes, but has since been removed by the nurse Reason for Continuing Indwelling Catheter: Decision to DC Catheter Urinary Catheter Date of Insertion: 06/20/21 Urinary Catheter Time of Insertion: 14:55 Date Urinary Catheter Removed: 06/22/21 Time Urinary Catheter Discontinued: 16:04 Data : 06/22/21 04:47 06/22/21 04:47 Results PAP Denies history of abnormal Pap smears in the past. 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 Large uterus fibroids impinging on the bladder and cervix. The largest fibroids measure between 6 to 8 cm. Leiomyosarcoma not excluded. The left ovary is not visualized well. The right ovary appears normal with a simple cyst measuring 1.8 x 1.8 cm. Small amount of free fluid in the cul-de-sac. Small fat-containing umbilical hernia A&P Assessment and plan (1) Fibroid, uterine: -Discussed that fibroids were benign growths from the myometrium. Discussed that malignant growths from the myometrium called sarcomas could also be present. The only way to differentiate between these two is by pathology after a myomectomy or hysterectomy. Review of symptoms caused by fibroids including menorrhagia, dysmenorrhea, pressure symptoms like dysuria, constipation, abdominal pain, etc. She understands this. -I discussed with her that I think it is unlikely that the fibroid is causing a small bowel obstruction as this is not usually what they do. Reviewed that sometimes additional scarring to the fibroid can cause obstruction. Reviewed that I would recommend management as per the hospitalist/general surgeon for management of the small bowel obstruction since that is the acute issue. If the small bowel obstruction resolved she will be discharged and needs to follow-up with me as an outpatient for further management of the fibroid uterus. If the small bowel obstruction does not resolve she may need a hysterectomy and I briefly reviewed this procedure with her with the anticipation that should this occur I will review her hysterectomy in detail -I discussed with her in great detail the that although the fibroid uterus is unlikely to be the cause of her small bowel obstruction but is definitely the cause for her anemia and definitely is definitely a contributory factor to her heavy irregular cycles. Some of that may also be perimenopause given that she has noted worsening in the last few years. Given that she has not seen or had a pelvic exam in many years there is always a risk of malignancy like endometrial or cervical cancer although I think that this is unlikely. -She will definitely need outpatient evaluation. -I discussed with her that I definitely think she needs a hysterectomy and given the size of the uterus it would likely be an open hysterectomy--total abdominal hysterectomy. I think the only thing that is left to be determined is if it is going to be in this hospitalization if the small bowel obstruction does not improve or if it is done in an interval procedure. -She is definitely anemic and this is likely acute on chronic. Upon discharge I would definitely want him to be taking iron. -I will follow up while she is in the hospital Status: Acute Attestations Medical Necessity Statement*: Patient will need to stay as per primary admitting hospitalist Coding Level of Care Code Acute Block Sawyer for Chg Fwd Diagnoses Fibroid, uterine D25.9
[2021-06-20] MEDS: sodium chlor 0.9% + KCl 20 mEq 20 MEQ/1,000 ML BAG 100 MEQ IV (17:45)
[2021-06-20] MEDS: pantoprazole 40 mg SDV IVP (17:52)
[2021-06-21] VITALS (9 sets, daily range): BP systolic 127–148; BP diastolic 71–85; PULSE 61–86; RESP 12–18; TEMP 36.4–37.2; O2SAT 93–96
[2021-06-21] MEDS: morphine 4 mg/mL SDV 1 mL IVP ×3 (02:40→15:49)
[2021-06-21] MEDS: sodium chlor 0.9% + KCl 20 mEq 20 MEQ/1,000 ML BAG 100 MEQ IV (03:39)
[2021-06-21 04:58] LABS: Basophils % 0.4 %; Eosinophils % 0.6 %; Hematocrit 29.2 % (37.0-47.0); Hemoglobin 8.6 g/dL (11.5-15.3); Lymphocytes # 0.9 10^3/uL (0.8-4.8); Lymphocytes % 15.6 %; Mean Corpuscular HGB Conc 29.5 g/dL (30.0-36.0); Mean Corpuscular Hemoglobin 25.7 pg (28.0-34.0); Mean Corpuscular Volume 87.2 fl (81-99); Mean Platelet Volume 12.2 fL (7.4-10.4); Monocytes # 0.4 10^3/uL (0.2-0.9); Monocytes % 7.5 %; Neutrophils # 4.12 10^3/uL (1.8-7.7); Neutrophils % 75.7 %; Nucleated Red Blood Cells % 0 %; Platelet Count 127 10^3/cmm (130-400); Red Blood Count 3.35 10^6/uL (4.1-5.3); Red Cell Distribution Width 15.9 % (12.1-15.1); White Blood Count 5.4 10^3/uL (4.0-10.0)
[2021-06-21 05:23] LABS: Anion Gap 12.1 (5-19); Blood Urea Nitrogen 9 mg/dL (6-20); Calcium 8.7 mg/dL (8.5-10.5); Carbon Dioxide 22 mmol/L (22-29); Chloride 108 mmol/L (98-107); Glomerular Filtration Rate 132.2 mL/min (90-130); Glucose 105 mg/dL (65-115); Osmolality Calculated 285 mOsm/kg (285-295); Potassium 4.1 mmol/L (3.5-5.1); Sodium 138 mmol/L (136-145)
[2021-06-21 05:26] LABS: Iron 43 ug/dL (37-145); Total Iron Binding Capacity 285 mcg/dl; Unsaturated Iron Binding 242 ug/dL (112-347)
[2021-06-21 05:29] LABS: Lactic Sepsis W/Reflex 0.6 mmol/L (0.5-2.2)
--- NOTE | 2021-06-21 06:00 | XR_ITS ---
WS: [id number] XR KUB [id number] REASON FOR EXAM: partial small bowel obstruction with NG tube FINDINGS: Nasogastric tube in the body of the stomach. Short segments of dilated small bowel in the left mid abdomen with thickened fold pattern. No free air or retroperitoneal air. Increased opacity in the lower abdomen and pelvis is secondary to large fibroid uterus demonstrated o n the CT scan of 06/20/2021. XR/XR KUB [id number] IMPRESSION: Findings of small bowel obstruction and pelvic mass as above.
--- NOTE | 2021-06-21 06:25 | PM.PN ---
Subjective Subjective: SUBJECTIVE: Ms Hurtado is feeling a little bit better this morning. She states that she does not feel as nauseous but still has some abdominal discomfort but it has improved from yesterday. She did write down a few questions about her fibroid uterus. She would like some pain medication right now. She hope she can go home. OBJECTIVE/PHYSICAL EXAM: Gen.: No acute distress Heart: S1-S2 heard, regular rate and rhythm Lungs: Clear to auscultation bilaterally Abdomen: Soft, nondistended-fibroid uterus palpated infraumbilically. Legs: No calf tenderness, no pedal edema. ASSESSMENT AND PLAN: 45-year-old 1 para 1-0-0-1 with fibroid uterus currently admitted with partial small bowel obstruction under management by general surgery and hospitalist team -Fibroid uterus-overall stable at this time unlikely to be the etiology of her small bowel obstruction. -I again reiterated to her that she definitely will need management of her fibroid uterus and it is important even if she gets discharged and is stable from a small bowel obstruction that she get this taken care of. [facility]ed [facility] and discussed paperwork and she will talk to the social workers about this. -Anticipate that she will be discharged as she is already improving. We will plan for to follow-up in my clinic a week after discharge and we will begin outpatient evaluation of the fibroid uterus with a transvaginal/transabdominal ultrasound to assess the uterus possible endometrial biopsy and cotesting. I discussed with her that we can anticipate surgery in the next 1 to 2 months depending on what time she needs to take from a work standpoint. I did review restrictions after hysterectomy of pelvic rest and no heavy lifting and she will talk to her work to ensure that this is going to be possible. -I will sign off from the case and anticipate outpatient follow-up for this patient unless her symptoms get worse and surgery is anticipated for her small bowel obstruction Vitals/I&O/Wt Last Vital Signs Temp 97.9 F 06/22/21 17:28 Pulse 92 06/22/21 17:28 Resp 14 06/22/21 17:28 BP 133/71 06/22/21 17:28 Pulse Ox 98 06/22/21 17:28 Physical Exam Urinary Catheter Management: Parikh: Cath Placed During This Visit: yes, but has since been removed by the nurse Reason for Continuing Indwelling Catheter: Decision to DC Catheter Urinary Catheter Date of Insertion: 06/20/21 Urinary Catheter Time of Insertion: 14:55 Date Urinary Catheter Removed: 06/22/21 Time Urinary Catheter Discontinued: 16:04 Data : 06/22/21 04:47 06/22/21 04:47 Attestations Medical Necessity Statement*: Admission as per hospitalist team Coding Level of Care Code Acute [employer]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
[2021-06-21 09:15] LABS: Hematocrit 29.2 % (37.0-47.0); Hemoglobin 8.7 g/dL (11.5-15.3)
--- NOTE | 2021-06-21 09:56 | PC.CHAP ---
Pastoral Care Encounter/Spiritual Assessment Type of Contact [] Declined supervisor slitting and shipping visit [] Patient/Family/Request visit [] Outpatient visit [] Follow-up visit [] Physician referral [] Code/Alert [x] Routine visit [] Staff referral [] Actively dying [] Patient sleeping [] Family support [] [x] Out of room [] Palliative care [] [] Receiving care in room [] Pre-surgical visit [] Trauma [] Long length of stay [] ICU visit [] Other: Relational/Emotional Strength [] Patient feels connected with others/family/visitors/staff [] Distress [] Loneliness/isolation [] Abandonment Spirituality of Patient [] Person of Nancy [] Attends Jewish of their Nancy [] Believes in Prayer [] Reads Bible or Episcopalian materials [] There are Spiritual issues to be addressed Job Site Supervisor Interventions [] Prayer [] Active listening [] Non-anxious presence [] Spiritual/emotional support [] Crisis/trauma care [] Spiritual counseling [] Bereavement support [] Provided bereavement packet [] Provided Bible/devotional materials [] Provided toy/stuffed animal, coloring book to patient or family member [] Provided Communion [] Anointing/[place] [] Salvation [] Completed spiritual assessment [] Other: Impact on Illness or Injury [] Angry [] Fearful [] Anxious [] Often cries [] Exhaustion [] Unable to work [] Unable to attend oriental orthodox [] Unable to walk/stand [] Unable to read [] Unable to drive [] Unable to eat/drink [] Unable to sleep [] Unable to be with family [] Patient intubated [] Other: Summary Time spent with patient
[2021-06-21] MEDS: ondansetron 2 mg/ML SDV 2 mL 4 MG IVP ×2 (10:46→17:10)
--- NOTE | 2021-06-21 11:14 | PM.PN ---
Subjective Subjective: Patient is stating that she has been experiencing dysfunctional uterine bleeding for quite some time was not able to follow-up with a doctor because of lack of insurance, sometimes her vaginal bleeding would last for about 30 days, hemoglobin today 8.7, normocytic Hemodynamically stable NG tube draining bilious content, 8 and 50 cc in the container Plan to keep NG tube in today, clamp around evening, appreciate general surgery recommendations, patient is stating that she was seen by public relations consultant Dr. Rudd who recommended outpatient evaluation and no acute inpatient diagnostic work-up Vitals/I&O/Wt Last Vital Signs Temp 97.6 F 06/21/21 04:00 Pulse 84 06/21/21 07:35 Resp 13 06/21/21 07:35 BP 127/75 06/21/21 07:35 Pulse Ox 93 06/21/21 07:35 06/20/21 06/21/21 06/21/21 22:59 06:59 14:59 Intake Total 1000 / 1999 1020 / 3020 Output Total 700 / 700 200 / 200 Balance 1000 / 2000 320 / 2320 -200 / -200 Weight last 48 hrs Weight 68.991 kg Weight 63.503 kg Weight 63.503 kg Physical Exam Narrative: Patient is laying stable in supine position NG tube draining bilious content Hemodynamic stable On room air Abdomen slightly tender on deep palpation, palpable uterus No signs of edema Nonfocal neuro exam EOMI, PERRLA Urinary Catheter Management: Parikh: Cath Placed During This Visit: yes Reason for Continuing Indwelling Catheter: Acute Urinary Retention or Obstruction Urinary Catheter Date of Insertion: 06/20/21 Urinary Catheter Time of Insertion: 14:55 Data : 06/21/21 09:08 06/21/21 04:38 A&P Assessment and plan (1) Partial small bowel obstruction: Status: Acute (2) Fibroid, uterine: Status: Acute (3) Enlarged uterus: Status: Acute (4) Anemia: Status: Acute Qualifiers: Anemia type: iron deficiency Iron deficiency anemia type: chronic blood loss Qualified Code(s): D50.0 - Iron deficiency anemia secondary to blood loss (chronic) (5) Menorrhagia with irregular cycle: Status: Chronic (6) Right ovarian cyst: Status: Chronic Plan Dysfunctional uterine bleeding, outpatient work-up indicated Hemoglobin to be monitored, Partial SBO, reviewed general surgery recommendations, continue NG tube to suction for now, we might be able to clamp later today Abdomen is soft however some tenderness around hypogastric region, palpable uterus Check iron studies, echo unremarkable EF 25% Patient is kept n.p.o. today Conservative management Continue IV fluids, change to D5 half-normal Adequate pain control with morphine Attestations Medical Necessity Statement*: Anticipating discharge in next 30 hours Time Spent in Patient Care: 20mins Coding Level of Care Code Acute Clinical Admissions Manager for Chg Fwd Diagnoses Partial small bowel obstruction K56.600 Fibroid, uterine D25.9 Enlarged uterus N85.2 Anemia D50.0 Anemia type: iron deficiency Iron deficiency anemia type: chronic blood loss Menorrhagia with irregular cycle N92.1 Right ovarian cyst N83.201
[2021-06-21] MEDS: dextrose 5%-sod chloride 0.45% 1,000 ML 75 ML IV (11:46)
--- NOTE | 2021-06-21 16:02 | PM.PN ---
Subjective Subjective: Patient overall feels better. Did not have much coming from the NG probably 200 mL overnight shift. Adequate urine output. No bowel activities yet Medications: Reviewed: Yes Vitals/I&O/Wt Last Vital Signs Temp 98.4 F 06/21/21 15:53 Pulse 86 06/21/21 15:53 Resp 14 06/21/21 15:53 BP 146/79 06/21/21 15:53 Pulse Ox 93 06/21/21 15:53 06/21/21 06/21/21 06/21/21 06:59 14:59 22:59 Intake Total 1020 / 3020 Output Total 700 / 700 200 / 200 750 / 950 Balance 320 / 2320 -200 / -200 -750 / -950 Weight last 48 hrs Weight 152 lb 1.6 oz Weight 140 lb Weight 140 lb Physical Exam Narrative: Patient is conscious alert oriented X3 No apparent distress BMI 27 Head and neck examination PERRLA no masses no cervical lymphadenopathy no jaundice NG in place with gastric content Abdomen nontender nondistended soft no organomegaly guarding or rigidity/no signs of peritonitis Extremities no cyanosis no clubbing no edema Urinary Catheter Management: Parikh: Cath Placed During This Visit: yes Reason for Continuing Indwelling Catheter: Acute Urinary Retention or Obstruction Urinary Catheter Date of Insertion: 06/20/21 Urinary Catheter Time of Insertion: 14:55 Data : 06/21/21 09:08 06/21/21 04:38 A&P Assessment and plan (1) Partial small bowel obstruction: We will plan to clamp the NG for 2 hours and check residuals if less than 200 mL will DC NG and start the patient on clear liquid diet Encourage ambulation IV fluid resuscitation Strict I's and O's Repeated physical examination We will continue coordinate care with hospitalist and gynecology services Assurance and education All questions have been answered and all concerns have been addressed to patient's satisfaction. Status: Acute Attestations Medical Necessity Statement*: Per admitting service Coding Level of Care Code Acute [employer] Drill Operator for Laura Robledo Diagnoses Partial small bowel obstruction K56.600
[2021-06-21] MEDS: pantoprazole 40 mg SDV IVP (17:10)
--- NOTE | 2021-06-21 18:30 | PC.NURSE ---
per dr arce, ng tube was to be clamped for 2 hours and residual checked. if less than 200mL, ng was ordered to be removed. at the 2 hour siobhan this nurse checked residual, resulting in 85mL. dr notified and ng ordered for removal, pt tolerated well. diet advanced to clear liquid to assess for tolerance.
[2021-06-22] VITALS (11 sets, daily range): BP systolic 116–137; BP diastolic 69–76; PULSE 74–92; RESP 12–18; TEMP 36.6–37.5; O2SAT 94–98
[2021-06-22] MEDS: dextrose 5%-sod chloride 0.45% 1,000 ML 75 ML IV (00:54)
[2021-06-22 05:00] LABS: Basophils % 0.4 %; Eosinophils # 0.1 10^3/uL (0.0-0.8); Eosinophils % 1.1 %; Hematocrit 28.4 % (37.0-47.0); Hemoglobin 8.3 g/dL (11.5-15.3); Lymphocytes # 0.9 10^3/uL (0.8-4.8); Lymphocytes % 18.9 %; Mean Corpuscular HGB Conc 29.2 g/dL (30.0-36.0); Mean Corpuscular Hemoglobin 25.6 pg (28.0-34.0); Mean Corpuscular Volume 87.7 fl (81-99); Mean Platelet Volume 12.7 fL (7.4-10.4); Monocytes # 0.5 10^3/uL (0.2-0.9); Monocytes % 10.1 %; Neutrophils # 3.29 10^3/uL (1.8-7.7); Neutrophils % 69.3 %; Nucleated Red Blood Cells % 0 %; Platelet Count 113 10^3/cmm (130-400); Red Blood Count 3.24 10^6/uL (4.1-5.3); Red Cell Distribution Width 15.9 % (12.1-15.1); White Blood Count 4.8 10^3/uL (4.0-10.0)
[2021-06-22 05:19] LABS: Anion Gap 10.8 (5-19); Blood Urea Nitrogen 7 mg/dL (6-20); Calcium 8.7 mg/dL (8.5-10.5); Carbon Dioxide 23 mmol/L (22-29); Chloride 103 mmol/L (98-107); Glomerular Filtration Rate 107.2 mL/min (90-130); Glucose 105 mg/dL (65-115); Osmolality Calculated 274 mOsm/kg (285-295); Potassium 3.8 mmol/L (3.5-5.1); Sodium 133 mmol/L (136-145)
--- NOTE | 2021-06-22 09:27 | P.DS_ITS ---
Discharge Providers Date of Admission: 06/20/21 14:51 Date of Discharge: June 22, 2021 Attending Provider at Admission: Kristen King MD Attending Provider at Discharge: Johan Gomes MD Diagnoses at Discharge Discharge Diagnosis (1) Partial small bowel obstruction: Status: Suspected Reason for Visit Reason for Visit: stomach pain/vomiting Hospital Course Hospital Course Detailed note of Dr. King at the time of admission:- Genesis David is a 45 year old female who presented to the emergency room with abdominal pain, nausea, vomiting.? She has had intermittent mildly similar symptoms off and on though never to this degree.? She has had upper abdominal pain described as a discomfort for several days.? She has a fairly high pain threshold and was uncomfortable but did not think much of it.? Pain radiated into her back.? Nausea developed a couple of days ago along with a sensation of being too full to eat.? Yesterday she started vomiting and has had multiple episodes of vomiting in the last 24 hours.? She denies any fever.? She has had decreased soft formed stool output over the last few days compared to usual.? Last bowel movement was yesterday morning and it was soft.? No flatus since then.? She describes decreased urine output at times feeling like she has to go evidently having a small amount of urine come out.? No reports of bowel or bladder incontinence.? The pain and frequency of vomiting became severe enough that her insisted that she come to the emergency room for evaluation.? Here she was found to have partial small bowel obstruction on CT imaging with a significantly enlarged and lobular uterus compressing on both bowel and bladder.? Hospitalist were called for admission.? NG tube was placed and Parikh catheter was placed.? Both surgery and FILLING MACHINE SET UP MECHANIC have been consulted to assist with management. Patient's last menstrual cycle was around 3 weeks ago.? She describes quite irregular periods over the last 3 years, maybe up to 5 years.? Describes periods lasting from a week to 3 weeks at a time, sometimes even longer.? Interval between cycles will be a couple of days to a few weeks.? Describes using 2 packages of 50-60 pads per cycle.? She has never sought medical care for this primarily because it became a definitive problem during a timeframe in which she did not have insurance as well as around the time that COVID hit.? She says that after her oophorectomy she had fairly normal periods lasting 3 to 5 days and what she would describe is normal flow until sometime between 3 to 5 years ago.? She took control pills for several months after her oophorectomy but has not been on any hormonal treatments since then. ? 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 She has been working overtime for quite a while at the facility.? In the last few weeks she has felt overall more tired than us ual.? She wears an N95 mask and until recently also a face shield for every shift.? She is not Covid vaccinated.? No recent Covid symptoms Hospital course Patient was admitted for management and evaluation of SBO related to enlarged uterus. There was no intraluminal obstruction. Was managed conservatively for SBO and nasogastric tube was removed within 18 hours, patient did not experience recurrence of nausea or vomiting, she was able to tolerate clear liquid diet. She was evaluated by general surgery and FILLING MACHINE SET UP MECHANIC Dr. Rudd. There is a plan to do staged hysterectomy, for which her hemoglobin should be around 9-10, I have given her 1 unit of PRBC. She is experiencing dysfunctional uterine bleeding. Appointment has been made at the time of discharge. I have discontinued aspirin from her home medications. Added iron and folic acid. Physical Exam Narrative: Nasogastric tube has been removed Abdomen is soft, enlarged uterus is palpable Abdomen is nontender no signs of peritonitis Patient is calm, cooperative, nonfocal neuro exam Saturating well on room air EOMI, PERRLA Urinary Catheter Management: Parikh: Cath Placed During This Visit: yes Reason for Continuing Indwelling Catheter: Acute Urinary Retention or Obstruction Urinary Catheter Date of Insertion: 06/20/21 Urinary Catheter Time of Insertion: 14:55 Discharge Data Studies Completed and Pending Completed Studies During Hospitalization Category Date Time Status CT abdomen pelvis w con* [id number] Stat Cat Scan 06/20/21 11:08 Completed XR KUB [id number] Routine Exams 06/21/21 06:00 Completed XR chest 1V portable [id number] Stat Exams 06/20/21 13:46 Completed CV. echo complete* [id number] Routine Ultrasound 06/20/21 17:17 Completed Pending at discharge Category Date Time Status PRBC [Leukocyte Reduced RBC] Routine Lab 06/22/21 09:25 Results Type and Screen AM LABS Lab 06/21/21 04:38 Results Radiology Impressions Abdomen/Pelvis CT 06/20/21 11:08 IMPRESSION: 1. Markedly enlarged heterogeneous lobulated uterus most consistent with fibroid uterus. Numerous large enhancing heterogeneous fibroids. Leiomyosarcoma is not excluded. Recommend CORNER BLOCK CUTTER consultation for resection. 2. LEFT ovary is not well visualized. RIGHT ovarian cystic lesion measuring 1.8 x 1.8 cm. 3. Large heterogeneous lobular uterus compresses the dorsal aspect of the bladder and cervix. 4. Small amount of free fluid in the pelvis. 5. Partial small bowel obstruction with air-fluid levels and slightly distended fluid-filled small bowel in the midabdomen and LEFT upper quadrant. Distal ileum is decompressed. 6. Colon is decompressed. 7. Small esophageal hiatal hernia. 8. Mild intrahepatic biliary duct dilatation. Mild prominence of the common bile duct measuring 7 mm. No visualized gallbladder calculi. Gallbladder can be followed up with ultrasound. Notified Dez Nieto DO at 06/20/2021 1:21 PM. Chest X-Ray 06/20/21 13:46 IMPRESSION: Nasogastric tube placement as above. KUB X-Ray 06/21/21 06:00 IMPRESSION: Findings of small bowel obstruction and pelvic mass as above. Laboratory Results WBC 4.8 10^3/uL (4.0-10.0) 06/22/21 04:47 RBC 3.24 10^6/uL (4.1-5.3) L 06/22/21 04:47 Hgb 8.3 g/dL (11.5-15.3) L 06/22/21 04:47 Hct 28.4 % (37.0-47.0) L 06/22/21 04:47 MCV 87.7 fl (81-99) 06/22/21 04:47 MCH 25.6 pg (28.0-34.0) L 06/22/21 04:47 MCHC 29.2 g/dL (30.0-36.0) L 06/22/21 04:47 RDW 15.9 % (12.1-15.1) H 06/22/21 04:47 Plt Count 113 10^3/cmm (130-400) L 06/22/21 04:47 MPV 12.7 fL (7.4-10.4) H 06/22/21 04:47 Neut % (Auto) 69.3 % 06/22/21 04:47 Lymph % (Auto) 18.9 % 06/22/21 04:47 [place] % (Auto) 10.1 % 06/22/21 04:47 Eos % (Auto) 1.1 % 06/22/21 04:47 Baso % (Auto) 0.4 % 06/22/21 04:47 Neut # (Auto) 3.29 10^3/uL (1.8-7.7) 06/22/21 04:47 Lymph # (Auto) 0.9 10^3/uL (0.8-4.8) 06/22/21 04:47 [place] # (Auto) 0.5 10^3/uL (0.2-0.9) 06/22/21 04:47 Eos # (Auto) 0.1 10^3/uL (0.0-0.8) 06/22/21 04:47 Baso # (Auto) 0.0 10^3/uL (0.0-0.1) 06/22/21 04:47 Nucleated RBC % (auto) 0 % 06/22/21 04:47 Nucleated RBCs # 0.0 /100WBC 06/22/21 04:47 Sodium 133 mmol/L (136-145) L 06/22/21 04:47 Potassium 3.8 mmol/L (3.5-5.1) 06/22/21 04:47 Chloride 103 mmol/L (98-107) 06/22/21 04:47 Carbon Dioxide 23 mmol/L (22-29) 06/22/21 04:47 Anion Gap 10.8 (5-19) 06/22/21 04:47 BUN 7 mg/dL (6-20) 06/22/21 04:47 Creatinine 0.6 mg/dL (0.5-0.9) 06/22/21 04:47 GFR Calculation 107.2 mL/min (90-130) 06/22/21 04:47 Glucose 105 mg/dL (65-115) 06/22/21 04:47 Calculated Osmolality 274 mOsm/kg (285-295) L 06/22/21 04:47 Lactic Acid 0.6 mmol/L (0.5-2.2) 06/21/21 04:38 Calcium 8.7 mg/dL (8.5-10.5) 06/22/21 04:47 Iron 43 ug/dL (37-145) 06/21/21 04:38 TIBC 285 mcg/dl 06/21/21 04:38 % Saturation 15.0 % (20-50) L 06/21/21 04:38 Unsat Iron Binding 242 ug/dL (112-347) 06/21/21 04:38 Total Bilirubin 0.3 mg/dL (0.15-1.2) 06/20/21 13:33 AST 28 U/L (0-32) 06/20/21 13:33 ALT 24 U/L (0-33) 06/20/21 13:33 Alkaline Phosphatase 76 IU/L (35-105) 06/20/21 13:33 Total Protein 7.2 g/dL (6.6-8.7) 06/20/21 13:33 Albumin 3.8 g/dL (3.5-5.2) 06/20/21 13:33 Globulin 3.4 g/dL (1.3-4.6) 06/20/21 13:33 Lipase 62 U/L (13-60) H 06/20/21 13:33 HCG, Qual Negative (Negative) 06/20/21 11:30 Urine Color Yellow (Yellow) 06/20/21 12:01 Urine Appearance Clear (CLEAR) 06/20/21 12:01 Urine pH 5 (5-7) 06/20/21 12:01 Ur Specific [place] 1.020 (1.005-1.030) 06/20/21 12:01 Urine Protein Neg (Negative) 06/20/21 12:01 Urine Glucose (UA) Norm (Normal) 06/20/21 12:01 Urine Ketones 2+ (Negative) H 06/20/21 12:01 Urine Blood Neg (Negative) 06/20/21 12:01 Urine Nitrate Negative (Negative) 06/20/21 12:01 Urine Bilirubin Neg (Negative) 06/20/21 12:01 Urine Urobilinogen Neg mg/dL (Negative) 06/20/21 12:01 Ur Leukocyte Esterase Negative (Negative) 06/20/21 12:01 Blood Type A Positive 06/21/21 04:38 Rho(D) Type Positive 06/21/21 04:38 Antibody Screen Negative 06/21/21 04:38 Crossmatch See Detail 06/21/21 04:38 Vitals Last Vital Signs Temp 99.4 F 06/22/21 04:00 Pulse 84 06/22/21 07:50 Resp 12 06/22/21 07:50 BP 137/75 06/22/21 07:50 Pulse Ox 96 06/22/21 07:50 Discharge Plan Discharge Patient Disposition: Home Condition: Stable Prescriptions: New Feosol 325 mg (65 mg iron) tablet 325 mg PO DAILY Qty: 90 3RF folic acid 1 mg tablet 1 mg PO DAILY Qty: 60 1RF Discharge Orders: Discharge Order (Routine); Ordered 06/22/21 Ordered By: Johan Gomes Referrals: Dorian Mcdonald MD [Physician] - (Return to surgery office in 2 weeks) Jamir Rodriguez MD [Physician] - 06/26/21 9:30 am Bebe Yen MD [Physician] - 07/06/21 2:30 pm Discharge Diet: Regular Patient Instructions: Iron Supplements (By mouth) (Duofer, Fe-20, Bifera, Benoit- Iron), Folic Acid (By mouth) (FA-8, Falessa, Folacin-800, Methylfolate), Abnormal (Dysfunctional) Uterine Bleeding (DC), Opioid Safety Discharge Attestations Time Spent in Discharge Care*: less than 30 min Quality Metrics Clinical Quality Measures [ No reported AMI, CVA or VTE this stay] Coding Level of Care Code Acute Chg FW DC note Diagnoses Partial small bowel obstruction K56.600
--- NOTE | 2021-06-22 09:47 | P.PN_ITS ---
Subjective Subjective: Patient was seen and examined today, tolerating p.o. intake and having adequate urine output Medications: Reviewed: Yes Vitals/I&O/Wt Last Vital Signs Temp 99.4 F 06/22/21 04:00 Pulse 84 06/22/21 07:50 Resp 12 06/22/21 07:50 BP 137/75 06/22/21 07:50 Pulse Ox 96 06/22/21 07:50 06/21/21 06/22/21 06/22/21 22:59 06:59 14:59 Intake Total 1060 / 1060 1325 / 2385 Output Total 1000 / 1200 300 / 1500 Balance 60 / -140 1025 / 885 Weight last 48 hrs Weight 153 lb 6.4 oz Weight 152 lb 1.6 oz Weight 140 lb Weight 140 lb Physical Exam Narrative: Patient is conscious alert oriented X3 No apparent distress BMI 27 Head and neck examination PERRLA no masses no cervical lymphadenopathy no jaundice Abdomen nontender nondistended soft no organomegaly guarding or rigidity/no signs of peritonitis Extremities no cyanosis no clubbing no edema Urinary Catheter Management: Parikh: Cath Placed During This Visit: yes Reason for Continuing Indwelling Catheter: Acute Urinary Retention or Obstruction Urinary Catheter Date of Insertion: 06/20/21 Urinary Catheter Time of Insertion: 14:55 Data : 06/22/21 04:47 06/22/21 04:47 A&P Assessment and plan (1) Partial small bowel obstruction: Advance diet as tolerated Can be discharged home and follow-up with surgery office in 2 weeks We will continue coordinate care with hospitalist and gynecology services Assurance and education All questions have been answered and all concerns have been addressed to patient's satisfaction. Status: Suspected Attestations Medical Necessity Statement*: Per admitting service Coding Level of Care Code Acute Screen Repairer Crusher for g Fwd Diagnoses Partial small bowel obstruction K56.600
[2021-06-22] MEDS: psyllium powder Pkt 1 PACKET PO (10:00)
[2021-06-22] MEDS: sodium chloride 0.9% (100 ml) 100 ML (14:53)
[2021-06-22] MEDS: ondansetron 2 mg/ML SDV 2 mL 4 MG IVP (15:41)
== END 2021-06-22 17:20 | disposition home or self-care (01) | DRG 390 ==
LOC: ER 16:10 → MEDSURG 16:45
PROVIDERS: Admitting Provider Hospitalist; Emergency Provider Family Medicine; Visit Provider Internal Medicine
DX: K56.600 Partial intestinal obstruction, unspecified as to cause (principal); N85.2 Hypertrophy of uterus; D25.9 Leiomyoma of uterus, unspecified; Z90.721 Acquired absence of ovaries, unilateral; D50.0 Iron deficiency anemia secondary to blood loss (chronic); N92.1 Excessive and frequent menstruation with irregular cycle; N83.201 Unspecified ovarian cyst, right side; R01.1 Cardiac murmur, unspecified
CPT/HCPCS: 36415; 36430; 51702; 71045; 74018; 74177; 80048; 80053; 81003; 83540; 83550; 83605; 83690; 84703; 85014; 85018; 85025; 86850; 86900; 86920; 93005; 93306; 96361; 96374; 96375; 96376; 99285; C9113; J2270; J2405; J7030; J7799; P9016; Q9967

== ENCOUNTER → 2021-07-11 13:28 | Outpatient (BNVA) | payer BC, MEDICAID, SELFPAY | PROVIDERS: Visit Provider Obstetrics & Gynecology | DX: D25.9 Leiomyoma of uterus, unspecified (principal) | CPT/HCPCS: 76830; 76856; 81025; 84146; 84443; 85025; 87624; 88305 ==

== ENCOUNTER 2021-07-18 09:31 | Outpatient (CLI) | payer BC, MEDICAID, SELFPAY ==
--- NOTE | 2021-07-18 09:51 | MM_ITS ---
WS: [id number] BILATERAL SCREENING TOMOSYNTHESIS DIGITAL MAMMOGRAM WITH CAD HISTORY: Z12.39 - Encounter for other screening for malignant neop... COMPARISON: None available. Bilateral CC and MLO views submitted. Computer aided detection analyzed. Breast composition: There are scattered areas of fibroglandular density. No suspicious masses, microc alcifications or architectural distortion. Asymmetries upper-outer aspect of each breast with no mass on tomosynthesis. MM/[place] [id number] IMPRESSION: BI-RADS: 2-Benign FOLLOW UP: 1 Year Follow-up
== END 2021-07-18 09:32 | disposition home or self-care (01) ==
LOC: RAD 09:32
PROVIDERS: Visit Provider Obstetrics & Gynecology
DX: Z12.31 Encounter for screening mammogram for malignant neoplasm of breast (principal)
CPT/HCPCS: 77063; 77067

== ENCOUNTER 2021-08-03 10:09 | Inpatient (IN) | payer BC, MEDICAID, SELFPAY ==
[2021-08-02 15:19] VITALS: BMI 25.0
[2021-08-03] VITALS (16 sets, daily range): BP systolic 119–157; BP diastolic 67–92; PULSE 79–102; RESP 16–20; TEMP 36.1–37.1; O2SAT 95–100; BMI 25.0
[2021-08-03 06:08] LABS: OR HCG Qualitative Urine Negative (Negative)
[2021-08-03] MEDS: scopolamine 1.5 Patch 1 PATCH TRANSDERMA (06:20)
[2021-08-03] MEDS: sodium chloride 0.9% 1,000 ML 30 ML IV (06:50)
--- NOTE | 2021-08-03 06:59 | W.PM.OPSUD ---
Surgery/Procedure H&P Update DATE OF PROCEDURE: August 03, 2021 DATE H&P PERFORMED: 07/18/21 H&P UPDATE INFORMATION: I have reviewed H&P completed within last 30 days, I have examined patient prior to procedure, No changes to prior documentation and H&P is in [facility] [place] on date indicated PREOP DIAGNOSIS: Uterine fibroids PLANNED PROCEDURE: Operation Date: 08/03/21 07:00 Proposed Procedures p Total Abdominal Hysterectomy 52690/d25.9(Not Applicable) - Jamir Rodriguez MD s Salpingectomy(Bilateral) - Jamir Rodriguez MD
--- NOTE | 2021-08-03 07:26 | P.ANESASSM_ITS ---
Pre-Anesthetic Assessment Height/Weight: Height 1.6 m Weight 63.957 kg Temp Pulse Resp BP Pulse Ox 97.8 F 84 16 152/92 100 08/03/21 06:03 08/03/21 06:03 08/03/21 06:03 08/03/21 06:03 08/03/21 06:03 Preop Diagnosis: Uterine fibroids Operation Date: 08/03/21 07:00 Proposed Procedures p Total Abdominal Hysterectomy 20596/d25.9(Not Applicable) - Jamir Weiner MD s Salpingectomy(Bilateral) - Jamir Rodriguez MD Familial anesthetic complications: None Was Beta Harris taken within 24 hours: N/A Was Clonidine taken within 24 hours: N/A Last intake: Intake Last Liquid Date 08/02/21 Last Liquid Time 21:30 Last Solid Date 08/02/21 Last Solid Time 20:00 Social No alcohol and No tobacco Exam alert, oriented x 3, clear to auscultation bilaterally and regular rate & rhythm Airway Submandibular: within normal limits Cervical ROM: within normal limits Mallampati: Class II Dentition: full CV/HEM Anemia and Murmur (reported) Anesthetic Plan ASA status: 1 Anesthesia: General Medications/Allergies Home Medications Medication Instructions Recorded Confirmed Last Taken Type No Known Home Medications 08/02/21 08/02/21 Unknown History Allergies Allergy/AdvReac Type Severity Reaction Status Date / Time No Known Allergies Allergy Verified 08/02/21 15:18 Current Medications Generic Name Dose Route Start Last Admin Trade Name Freq PRN Reason Stop Dose Admin Sodium Chloride 1,000 mls @ 30 mls/hr 08/03/21 06:00 08/03/21 06:50 Sodium Chloride 0.9% IV 08/04/21 05:59 30 mls/hr .Q24H TETE Administration PFSH Anesthesia Medical History No pertinent past medical history Denies diabetes, asthma, hypertension, seizures, DVT/PE PMD: Has an appointment with Dr. Yen on 07/06/2021 Surgical History History of left oophorectomy 1994---laparoscopic procedure with removal of left ovarian mass and drainage of right ovarian cyst. She states that the ovarian cyst was the size of a cantaloupe. Benign per patient History of tonsillectomy Tonsils and adenoids removed at the age of 17 History of wisdom tooth extraction Hx of section 1995-- delivery via Pfannenstiel incision performed in [place] Family History Father Hypertension Mother Murmur Family/Other Colon cancer maternal uncle, diagnosed at age 60 Sister Thyroid condition Denies family history of Ovarian cancer Diabetes CAD (coronary artery disease) Hyperlipidemia Breast cancer Anesthesia complication Bleeding disorder Uterine cancer Stroke Female Reproductive History Para: 1 Spontaneous abortions: No Data Anesthesia Cardiac Studies: 2 Echocardiogram 06/20/21
[2021-08-03 07:49] LABS: Basophils % 0.6 %; Eosinophils # 0.1 10^3/uL (0.0-0.8); Eosinophils % 1.8 %; Hematocrit 34.3 % (37.0-47.0); Lymphocytes % 30.2 %; Mean Corpuscular HGB Conc 32.1 g/dL (30.0-36.0); Mean Corpuscular Hemoglobin 28.9 pg (28.0-34.0); Mean Platelet Volume 12.3 fL (7.4-10.4); Monocytes # 0.5 10^3/uL (0.2-0.9); Monocytes % 16.3 %; Neutrophils # 1.65 10^3/uL (1.8-7.7); Neutrophils % 50.8 %; Nucleated Red Blood Cells % 0 %; Platelet Count 111 10^3/cmm (130-400); Red Blood Count 3.81 10^6/uL (4.1-5.3); Red Cell Distribution Width 18.4 % (12.1-15.1); White Blood Count 3.3 10^3/uL (4.0-10.0)
[2021-08-03 08:05] LABS: Alanine Aminotransferase 24 U/L (0-33); Albumin Level 3.9 g/dL (3.5-5.2); Alkaline Phosphatase 70 IU/L (35-105); Anion Gap 12.9 (5-19); Aspartate Amino Transferase 26 U/L (0-32); Blood Urea Nitrogen 9 mg/dL (6-20); Calcium 8.5 mg/dL (8.5-10.5); Carbon Dioxide 23 mmol/L (22-29); Chloride 104 mmol/L (98-107); Globulin 3.6 g/dL (1.3-4.6); Glomerular Filtration Rate 132.2 mL/min (90-130); Glucose 90 mg/dL (65-115); Osmolality Calculated 280 mOsm/kg (285-295); Potassium 3.9 mmol/L (3.5-5.1); Sodium 136 mmol/L (136-145); Total Bilirubin 0.3 mg/dL (0.15-1.2); Total Protein 7.5 g/dL (6.6-8.7)
--- NOTE | 2021-08-03 08:08 | SUR.OPER ---
family updated of surgical status
--- NOTE | 2021-08-03 08:38 | SUR.PREOP ---
[address] haynes(anesthesiologist) after 6 unsuccessful iv attempts, blood that was ordered pre-op is to be collected in or and message relayed to yimi mae in or room
--- NOTE | 2021-08-03 08:46 | SUR.OPER ---
family updated of surgical status
--- NOTE | 2021-08-03 10:01 | PM.OP ---
Operative Report Date of procedure: August 03, 2021 OPERATIVE REPORT Date of surgery: 08/03/2021 Date of dictation: 08/03/2021 Preoperative diagnosis: 45-year-old 1 para 1-0-0-1, menorrhagia/abnormal uterine bleeding, anemia, fibroid uterus Postoperative diagnosis/findings: 20-week size multi fibroid uterus, right ovary, left ovary looked extremely small, bilateral tubes with signs of surgery---small molly noted along the left mesosalpinx Procedure done: Total abdominal hysterectomy, bilateral salpingectomy Specimens removed/disposition of specimens: Uterus cervix bilateral tubes Surgeon: Dr. Jamir Rudd Physician equal opportunity assistant: Jody Barry Anesthesia: General endotracheal tube anesthesia Estimated blood loss: 400 ml Intravenous fluids: 1000 mL of LR Urine output: 300 mL of clear urine at the end of procedure Medications: As per anesthesia records Complications: None, patient was taken to the recovery room in a stable condition. PROCEDURE: After consent was obtained patient was taken to the operating room where she was placed under general anesthesia. Sequential compression boots and Parikh catheter were placed. She was prepped and draped in the usual sterile fashion in a dorsal supine position. A horizontal suprapubic incision was made using a scalpel at the level of her previous scar and this was extended down to the Fascia using a combination of scalpel and Bovie. Good hemostasis was achieved in the subcutaneous field.. Incision was carried down to the fascia with electrocautery and a scalpel. Fascia was incised in the midline and extended laterally sharply. Rectus muscles were in the midline sharply and Peritoneum was identified and was sharply entered. No adhesions were noted-with this the bowel was packed away and pelvis was visualized. Some adhesions were noted from the bladder onto the uterus consistent with previous . The uterus was noted to be enlarged with multiple fibroids and the uterus was brought out through the incision. Tubes appeared normal as did the right ovary. The left ovary looked extremely small. No other lesions were noted posteriorly. The right round ligament, ovarian ligament and fallopian tube were grasped with the Voyant cautery device and the device was clamped cauterized and then cut this tissue.? We then used the voyant to continue inferiorly in a sequential fashion clamping cutting and cauterizing the parametrial tissue taking care to stay medial and hold the bladder away from uterus.? This was done up to the level of the uterine arteries which were then clamped cauterized and then cut.? Backbleeding from the uterus was controlled with [id number] sutures.? This was done first on the right side and then on the left side in a similar fashion. Straight clamps were placed at the level of the internal os. These were cut, and then tied with 0 Vicryl suture bilaterally.? The bladder was then sharply dissected away from the cervix until it was carried below the level of the cervix.? The remaining portion of the parametria was then serially clamped, cut, and suture ligated with 0 Vicryl suture bilaterally until the bottom of the cervix was reached.? At this point, sharply curved clamps were placed across the top of the vagina and the remaining portion of the cervix excised. With this the uterus and cervix were removed. The cervix was inspected and noted to be complete.? The corners of the cuff were secured with 0 Vicryl suture in a Ricky fashion bilaterally.? The remaining portion of the vaginal cuff was closed with 0 Vicryl suture in an interrupted [id number] fashion.? The area was thoroughly inspected and noted to be hemostatic.? It was irrigated and noted to be hemostatic.? The bladder was noted to be away from vaginal cuff. Attention was then turned towards the fallopian tubes bilaterally. The fallopian tubes were grasped with Piercy and using the abdominal Voyant the mesosalpinx was clamped cauterized and cut serially so that the fallopian tubes were and sent to pathology along with the uterus with the right fallopian tube tagged ?The pelvis was irrigated once again and good hemostasis was achieved. Surgicel was placed over the vaginal cuff.? The peritoneum was closed in a continuous fashion and the rectus muscles closed with mattress sutures. Good hemostasis was achieved in the muscle layer. The fascia was closed with 0 Vicryl in a continuous fashion and good reapproximation was obtained. The subcutaneous plane was irrigated well and hemostasis was achieved with the Bovie.? It was reapproximated using 2-0 plain sutures in a continuous fashion. The skin was then closed with 4-0 Monocryl in a subcuticular fashion. ?Pressure dressing was applied onto the abdomen. Lap instrument and needle counts were correct x2. Parkih catheter was kept in place. Patient was extubated without difficulty and taken to the recovery room in a stable condition. This documentation was created by [employer] obstetrician gynecologist software (known for inherent obstetrician gynecologist error). Every effort was made to assure accuracy of obstetrician gynecologist. Any obvious errors or omissions should be clarified with the author of the document. Pre-op diagnosis: Preop Diagnosis Uterine fibroids
[2021-08-03] MEDS: fentaNYL 50 mcg/mL INJ 2mL IVP (10:18)
[2021-08-03] MEDS: HYDROcodone-acetaminophen 5-325 mg Tablet PO ×2 (11:18→17:55)
--- NOTE | 2021-08-03 13:47 | ANE.PACU2 ---
Inpatient post-anesthesia follow up: Airway intact: Yes Vital signs: Temperature 98.4 F Pulse Rate 102 Respiratory Rate 18 Blood Pressure 137/76 Pulse Oximetry 95 Oxygen Delivery Me thod Room Air Oxygen Flow Rate 8 Fraction of Inspir ed Oxygen Hydration adequate: Yes Nausea and vomiting: No Pain level: 3 Mental status: Baseline
[2021-08-03 14:51] LABS: Hematocrit 31.8 % (37.0-47.0); Hemoglobin 10.2 g/dL (11.5-15.3); Mean Corpuscular HGB Conc 32.1 g/dL (30.0-36.0); Mean Corpuscular Hemoglobin 29.2 pg (28.0-34.0); Mean Corpuscular Volume 91.1 fl (81-99); Platelet Count 99 10^3/cmm (130-400); Red Blood Count 3.49 10^6/uL (4.1-5.3); White Blood Count 7.5 10^3/uL (4.0-10.0)
[2021-08-03] MEDS: docusate sodium 100 mg Capsule PO (17:55)
[2021-08-03] MEDS: dextrose 5%-lactated ringers 1,000 ML 125 ML IV (18:19)
[2021-08-03] MEDS: ibuprofen 800 mg tablet PO (21:39)
[2021-08-04] MEDS: HYDROcodone-acetaminophen 5-325 mg Tablet PO ×3 (01:00→20:35)
[2021-08-04] MEDS: dextrose 5%-lactated ringers 1,000 ML 125 ML IV (01:55)
[2021-08-04 03:23] VITALS: BP 105/53; PULSE 71; TEMP 37.1; O2SAT 97
[2021-08-04] MEDS: ibuprofen 800 mg tablet PO ×3 (04:49→20:35)
[2021-08-04 05:41] LABS: Basophils % 0.2 %; Eosinophils % 0.2 %; Hematocrit 27.9 % (37.0-47.0); Hemoglobin 8.9 g/dL (11.5-15.3); Lymphocytes % 19.2 %; Mean Corpuscular HGB Conc 31.9 g/dL (30.0-36.0); Mean Corpuscular Hemoglobin 29.2 pg (28.0-34.0); Mean Corpuscular Volume 91.5 fl (81-99); Mean Platelet Volume 13.4 fL (7.4-10.4); Monocytes # 0.5 10^3/uL (0.2-0.9); Monocytes % 9.8 %; Neutrophils # 3.75 10^3/uL (1.8-7.7); Neutrophils % 70.4 %; Nucleated Red Blood Cells % 0 %; Platelet Count 91 10^3/cmm (130-400); Red Blood Count 3.05 10^6/uL (4.1-5.3); Red Cell Distribution Width 18.5 % (12.1-15.1); White Blood Count 5.3 10^3/uL (4.0-10.0)
[2021-08-04 05:52] LABS: Slide Review Slide Review Perform
[2021-08-04 10:45] VITALS: BP 116/67; PULSE 72; RESP 16; TEMP 36.6; O2SAT 100
[2021-08-04 13:00] LABS: Basophils % 0.2 %; Eosinophils % 0.6 %; Hematocrit 30.5 % (37.0-47.0); Hemoglobin 9.5 g/dL (11.5-15.3); Lymphocytes % 19.4 %; Mean Corpuscular HGB Conc 31.1 g/dL (30.0-36.0); Mean Corpuscular Hemoglobin 28.7 pg (28.0-34.0); Mean Corpuscular Volume 92.1 fl (81-99); Mean Platelet Volume 12.7 fL (7.4-10.4); Monocytes # 0.4 10^3/uL (0.2-0.9); Monocytes % 7.4 %; Neutrophils % 72.2 %; Nucleated Red Blood Cells % 0 %; Platelet Count 106 10^3/cmm (130-400); Red Blood Count 3.31 10^6/uL (4.1-5.3); Red Cell Distribution Width 18.6 % (12.1-15.1)
--- NOTE | 2021-08-04 14:43 | P.PN_ITS ---
Subjective Subjective: SUBJECTIVE: Genesis is doing okay today. Pain is well controlled with p.o. pain medication. She denies nausea, vomiting, fever, chills, shortness of breath and chest pain. She is ambulating well and denies any dizziness or fatigue. She denies any vaginal bleeding and has been voiding freely since removal of catheter. She has questions about plan of care. OBJECTIVE/PHYSICAL EXAM: Gen.: No acute distress Heart: S1-S2 heard, regular rate and rhythm Lungs: Clear to auscultation bilaterally Abdomen: Soft, fundus firm below umbilicus, tenderness around incision. Incision: Clean dry and intact with Steri-Strips. Legs: No calf tenderness, no pedal edema. ASSESSMENT AND PLAN: 45-year-old 1 para 1-0-0-1 status post total abdominal hysterectomy, bilateral salpingectomy for menorrhagia with fibroid uterus, postoperative day #1 -Continue routine postoperative care-encourage ambulation and p.o. pain medication and incentive spirometer use -Continue full liquid diet until patient passes flatus and then will advance to regular diet -Follow-up CBC tomorrow -Thrombocytopenia-stable, hemoglobin stable, vital signs stable -Anticipate discharge home in the next 1 to 2 days depending on return of bowel function Vitals/I&O/Wt Last Vital Signs Temp 97.9 F 08/04/21 10:45 Pulse 72 08/04/21 10:45 Resp 16 08/04/21 10:45 BP 116/67 08/04/21 10:45 Pulse Ox 100 08/04/21 10:45 08/03/21 08/04/21 08/04/21 22:59 06:59 14:59 Intake Total 1491.667 / 3541.667 Output Total 2900 / 3900 1200 / 5100 700 / 700 Balance -2900 / -1850 291.667 / -1558.333 -700 / -700 Weight last 48 hrs Weight 141 lb Weight 141 lb Physical Exam Urinary Catheter Management: Parikh Latex: Cath Placed During This Visit: yes, but has since been removed by the nurse Reason for Continuing Indwelling Catheter: Decision to DC Catheter Urinary Catheter Date of Insertion: 08/03/21 Urinary Catheter Time of Insertion: 07:25 Date Urinary Catheter Removed: 08/04/21 Time Urinary Catheter Discontinued: 03:15 Data : 08/05/21 05:30 08/03/21 07:19 Attestations Medical Necessity Statement*: Patient will need to stay 1-2 more midnights to recover from hysterectomy Coding Level of Care Code Acute Concrete Buster Operator for Laura Robledo
[2021-08-04 16:00] VITALS: BP 122/74; PULSE 79; RESP 16; TEMP 36.7; O2SAT 99
[2021-08-04 22:15] VITALS: BP 113/67; PULSE 82; RESP 17; TEMP 36.8
[2021-08-05 04:00] VITALS: BP 123/70; PULSE 55; RESP 16; TEMP 36.8; O2SAT 98
[2021-08-05 05:38] LABS: Basophils % 0.5 %; Eosinophils # 0.1 10^3/uL (0.0-0.8); Hematocrit 32.9 % (37.0-47.0); Hemoglobin 10.3 g/dL (11.5-15.3); Lymphocytes % 23.5 %; Mean Corpuscular HGB Conc 31.3 g/dL (30.0-36.0); Mean Corpuscular Hemoglobin 28.9 pg (28.0-34.0); Mean Corpuscular Volume 92.2 fl (81-99); Mean Platelet Volume 12.5 fL (7.4-10.4); Monocytes # 0.3 10^3/uL (0.2-0.9); Monocytes % 8.2 %; Neutrophils # 2.66 10^3/uL (1.8-7.7); Neutrophils % 65.8 %; Nucleated Red Blood Cells % 0 %; Platelet Count 105 10^3/cmm (130-400); Red Blood Count 3.57 10^6/uL (4.1-5.3); Red Cell Distribution Width 18.3 % (12.1-15.1)
[2021-08-05] MEDS: ibuprofen 800 mg tablet PO ×2 (06:33→15:29)
[2021-08-05] MEDS: HYDROcodone-acetaminophen 5-325 mg Tablet PO ×2 (06:34→15:29)
[2021-08-05 10:50] VITALS: BP 120/74; PULSE 56; RESP 16; TEMP 36.7; O2SAT 100
[2021-08-05] MEDS: acetaminophen 325 mg Tablet 650 MG PO (10:53)
--- NOTE | 2021-08-05 13:40 | PM.OBGYDC ---
Discharge Providers COPY WRITER Date of Admission: 08/03/21 10:09 Date of Discharge: 08/05/21 Attending Provider at Admission: Jamir Rodriguez MD Attending Provider at Discharge: Jamir Rodriguez MD ADMISSION DIAGNOSIS: 45-year-old 1 para 1-0-0-1 Abnormal uterine bleeding Fibroid uterus Chronic anemia Previous delivery DISCHARGE DIAGNOSIS: Total abdominal hysterectomy, bilateral salpingectomy on 08/03/2021 PREHOSPITAL COURSE: Ms David is a 45-year-old 1 para 1-0-0-1 who presented to [facility] for scheduled hysterectomy for fibroid uterus and chronic anemia with heavy bleeding. She did not want medical management. No new symptoms on the day of surgery HOSPITAL COURSE: She underwent an uncomplicated TIGIST, bilateral salpingectomy on 08/03/2021. She did well on postoperative day 0 and was ambulating well, tolerating clear liquid diet. Pain was well-controlled with by mouth and IV pain medication. She denied nausea, vomiting, fever, chills, shortness of breath, leg pain. She had minimal vaginal bleeding. Parikh catheter was kept overnight and she had adequate urine output. On postoperative day #1 she continued to do well with stable vital signs and stable hemoglobin at 9.3. Parikh catheter was removed and patient was able to void with minimal residual noted on bladder scan. She ambulated well started passing flatus and then tolerated a regular diet at night on postoperative day #1. She continued to do well on postoperative day #2 with stable vital signs and no new complaints. Lab work was stable and hemoglobin was 10.3 with a normal white count. She was discharged home on postoperative day #1 in a stable condition. Warning signs for wound infection, cuff infection, DVT/PE were reviewed with her. Post surgical activity restrictions were also reviewed with her at all her questions were answered to her satisfaction. This documentation was created by [employer] agricultural engineering teacher software (known for inherent agricultural engineering teacher error). Every effort was made to assure accuracy of agricultural engineering teacher. Any obvious errors or omissions should be clarified with the author of the document. Primary Care Provider: Bebe Yen MD Reason for Visit Reason for Visit: uterine fibroid Physical Exam Urinary Catheter Management: Parikh Latex: Cath Placed During This Visit: yes, but has since been removed by the nurse Reason for Continuing Indwelling Catheter: Decision to DC Catheter Urinary Catheter Date of Insertion: 08/03/21 Urinary Catheter Time of Insertion: 07:25 Date Urinary Catheter Removed: 08/04/21 Time Urinary Catheter Discontinued: 03:15 History History History 1 Term 1 Miscarriages/Ectopic 0 0 Living Children 1 Discharge Data Studies Completed and Pending Completed Studies During Hospitalization Category Date Time Status Pathology: Surgical [PTH] Routine Pth 08/03/21 09:56 Completed Pending at discharge Category Date Time Status Antibody Identification Stat Lab 08/03/21 07:19 Results Antigen Typing Patient Routine Lab 08/03/21 07:19 Results Antigen Typing Units Routine Lab 08/03/21 07:15 Received Antigen Typing Units Routine Lab 08/03/21 07:19 Results Antigen Typing Units Routine Lab 08/03/21 07:25 Received Antigen Typing Units Routine Lab 08/03/21 07:26 Received Leukocyte Reduced RBC Stat Lab 08/03/21 07:19 Results Type and Screen Routine Lab 08/03/21 07:19 Results Laboratory Results WBC 4.0 10^3/uL (4.0-10.0) 08/05/21 05:30 RBC 3.57 10^6/uL (4.1-5.3) L 08/05/21 05:30 Hgb 10.3 g/dL (11.5-15.3) L 08/05/21 05:30 Hct 32.9 % (37.0-47.0) L 08/05/21 05:30 MCV 92.2 fl (81-99) 08/05/21 05:30 MCH 28.9 pg (28.0-34.0) 08/05/21 05:30 MCHC 31.3 g/dL (30.0-36.0) 08/05/21 05:30 RDW 18.3 % (12.1-15.1) H 08/05/21 05:30 Plt Count 105 10^3/cmm (130-400) L 08/05/21 05:30 MPV 12.5 fL (7.4-10.4) H 08/05/21 05:30 Neut % (Auto) 65.8 % 08/05/21 05:30 Lymph % (Auto) 23.5 % 08/05/21 05:30 Woodward % (Auto) 8.2 % 08/05/21 05:30 Eos % (Auto) 2.0 % 08/05/21 05:30 Baso % (Auto) 0.5 % 08/05/21 05:30 Neut # (Auto) 2.66 10^3/uL (1.8-7.7) 08/05/21 05:30 Lymph # (Auto) 1.0 10^3/uL (0.8-4.8) 08/05/21 05:30 Woodward # (Auto) 0.3 10^3/uL (0.2-0.9) 08/05/21 05:30 Eos # (Auto) 0.1 10^3/uL (0.0-0.8) 08/05/21 05:30 Baso # (Auto) 0.0 10^3/uL (0.0-0.1) 08/05/21 05:30 Nucleated RBC % (auto) 0 % 08/05/21 05:30 Nucleated RBCs # 0.0 /100WBC 08/05/21 05:30 Sodium 136 mmol/L (136-145) 08/03/21 07:19 Potassium 3.9 mmol/L (3.5-5.1) 08/03/21 07:19 Chloride 104 mmol/L (98-107) 08/03/21 07:19 Carbon Dioxide 23 mmol/L (22-29) 08/03/21 07:19 Anion Gap 12.9 (5-19) 08/03/21 07:19 BUN 9 mg/dL (6-20) 08/03/21 07:19 Creatinine 0.5 mg/dL (0.5-0.9) 08/03/21 07:19 GFR Calculation 132.2 mL/min (90-130) H 08/03/21 07:19 Glucose 90 mg/dL (65-115) 08/03/21 07:19 Calculated Osmolality 280 mOsm/kg (285-295) L 08/03/21 07:19 Calcium 8.5 mg/dL (8.5-10.5) 08/03/21 07:19 Total Bilirubin 0.3 mg/dL (0.15-1.2) 08/03/21 07:19 AST 26 U/L (0-32) 08/03/21 07:19 ALT 24 U/L (0-33) 08/03/21 07:19 Alkaline Phosphatase 70 IU/L (35-105) 08/03/21 07:19 Total Protein 7.5 g/dL (6.6-8.7) 08/03/21 07:19 Albumin 3.9 g/dL (3.5-5.2) 08/03/21 07:19 Globulin 3.6 g/dL (1.3-4.6) 08/03/21 07:19 Urine HCG, Qual Negative (Negative) 08/03/21 06:07 Blood Type A Positive 08/03/21 07:19 Rho(D) Type Positive 08/03/21 07:19 Antibody Screen Positive 08/03/21 07:19 Antibody Identification Anti-Fya 08/03/21 07:19 Antigen Identification Fya Antigen - NEGATIVE 08/03/21 07:19 Crossmatch See Detail 08/03/21 07:19 Vitals Last Vital Signs Temp 98.0 F 08/05/21 10:50 Pulse 56 L 08/05/21 10:50 Resp 16 08/05/21 10:50 BP 120/74 08/05/21 10:50 Pulse Ox 100 08/05/21 10:50 Discharge Plan Discharge Condition: Stable Prescriptions: No Action No Known Home Medications 0RF Referrals: Soto Saha MD [Physician] - 08/15/21 11:15 am (* Your 2 week incision check is on 08/15/2021 at 11:[address] Saha * Your 6 week post op appointment is on 09/13/2021 at 8:[address] Saha) Patient Instructions: Salpingectomy (DC), Hysterectomy (DC), OB Discharge Report, OB Food/Drug Interaction Guide, Opioid Safety Discharge Attestations COPY WRITER Time Spent in Discharge Care*: greater than 30 min Coding Level of Care Code Acute Heading And Priming Tool Setter for g Meena
[2021-08-05 17:55] VITALS: BP 132/78; PULSE 85; RESP 16; TEMP 36.6; O2SAT 100
== END 2021-08-05 16:15 | disposition home or self-care (01) | DRG 743 ==
LOC: OBGYN 10:10
PROVIDERS: Admitting Provider Obstetrics & Gynecology; PCP Family Medicine; Visit Provider Obstetrics & Gynecology
PROC: 0UT90ZZ Resection of Uterus, Open Approach (ICD-10-PCS; CPT 58150; principal; 2021-08-03 07:00)
PROC: 0UT90ZZ Resection of Uterus, Open Approach (ICD-10-PCS; CPT 58700; 2021-08-03 07:00)
DX: D25.9 Leiomyoma of uterus, unspecified (principal); D69.6 Thrombocytopenia, unspecified; D64.9 Anemia, unspecified
CPT/HCPCS: 36415; 51702; 80053; 80503; 81025; 84703; 85025; 85027; 86850; 86870; 86900; 86902; 86920; 88307; J0690; J1100; J1200; J2405; J2704; J3010; J3490; J7030

== ENCOUNTER → 2021-08-15 12:46 | Outpatient (BNVA) | payer BC, MEDICAID, SELFPAY | PROVIDERS: PCP Family Medicine; Visit Provider Obstetrics & Gynecology | DX: D64.9 Anemia, unspecified (principal) | CPT/HCPCS: 85025 ==

== ENCOUNTER → 2021-09-12 10:58 | Outpatient (BNVA) | payer BC, MEDICAID, SELFPAY | PROVIDERS: PCP Family Medicine; Visit Provider Obstetrics & Gynecology | DX: Z98.890 Other specified postprocedural states (principal) | CPT/HCPCS: 85025 ==

== ENCOUNTER → 2022-06-19 13:36 | Outpatient (BNVA) | payer BC, MEDICAID, SELFPAY | PROVIDERS: PCP Family Medicine; Visit Provider Emergency Medicine | DX: R10.9 Unspecified abdominal pain (principal) | CPT/HCPCS: 81000; 85025; 87086 ==

== ENCOUNTER 2022-06-21 13:05 | Outpatient (CLI) | payer BC, MEDICAID, SELFPAY ==
--- NOTE | 2022-06-21 13:00 | US_ITS ---
WS: [id number] RIGHT UPPER QUADRANT ULTRASOUND HISTORY: R10.9 - Unspecified abdominal pain COMPARISON: None available. Liver: 14.9 cm in length. Normal size liver and echogenicity. No bile duct dilatation or mass. Portal Vein: Normal hepatopetal flow with monophasic waveform. Gallbladder: Gallbladder is mildly contracted. There is mild gallbladder wall thickening which in par t is due to the contraction. No adjacent edema or inflammation. No stones or sludge identified. Patie nt is not fasting for this exam. CBD: 0.4 cm Pancreas: Normal size and echogenicity. Right kidney: 9.1 cm in length. Normal size and echogenicity. No hydronephrosis or mass. Aorta and IVC: Unremarkable abdominal aorta and IVC. No ascites. US/US gall bladder [id number] IMPRESSION: 1. Contracted gallbladder with mild diffuse wall thickening. No stones identif ied. RIGHT upper quadrant ultrasound was done nonfasting. 2. Clinically if there is concern for acute cholecystitis or gallbladder dysfu nction consider repeating this ultrasound with patient fasting for at least 8 h ours. 3. Otherwise negative.
== END 2022-06-21 13:06 | disposition home or self-care (01) ==
PROVIDERS: Visit Provider Emergency Medicine
DX: R10.9 Unspecified abdominal pain (principal)
CPT/HCPCS: 76705

== ENCOUNTER 2022-07-11 09:34 | Outpatient (CLI) | payer BC, MEDICAID, SELFPAY ==
--- NOTE | 2022-07-11 10:00 | NM_ITS ---
WS: [id number] NUCLEAR MEDICINE HIDA SCAN WITH GALLBLADDER EJECTION FRACTION HISTORY: R10.9 - Unspecified abdominal pain COMPARISON: Gallbladder ultrasound 06/21/2022 TECHNIQUE: The patient was intravenously injected with 7.6 mCi of TC99m Mebrofenin. Immediate imaging over the right upper quadrant was followed by 5 minute image and additional images for a total of 60 minutes. Normal uptake of radiotracer throughout the liver. Activity identified in the gallbladder at 90 minutes and only minimally distended at 90 minutes. Activity in the proximal small bowel was seen by 15 minutes. Good washout of the radiotracer from the liver by 60 minutes. The patient then drank 8 ounces of Ensure Plus. Ejection fraction at 60 minutes was 72%. Normal GB ej ection fraction is 35-75%. Post fatty meal symptoms: None. NM/NM hepatobiliary w phar* [id number] IMPRESSION: 1. Delayed filling of the gallbladder and the gallbladder is small. Suggesting chronic cholecystitis. 2. The ejection fraction is normal.
== END 2022-07-11 09:35 | disposition home or self-care (01) ==
LOC: RAD 09:36
PROVIDERS: Visit Provider Emergency Medicine
DX: R10.9 Unspecified abdominal pain (principal)
CPT/HCPCS: 78227; A9537

== ENCOUNTER 2023-07-18 09:26 | Outpatient (CLI) | payer BC, MEDICAID, SELFPAY ==
--- NOTE | 2023-07-18 09:30 | MM_ITS ---
WS: [id number] BILATERAL 3D TOMOSYNTHESIS DIGITAL SCREENING MAMMOGRAPHY WITH CAD CLINICAL INFORMATION: Z12.31 - Encounter for screening mammogram for malignant ... HISTORY: Screening mammogram. No current complaints. COMPARISON: 2021 TECHNIQUE: Bilateral CC and MLO views. FINDINGS: Scattered fibroglandular densities bilaterally. No suspicious focal mass, asymmetry, calcifications, or architectural distortion. No evidence of malignancy. A few incidental calcifications. MM/[place] [id number] IMPRESSION: BI-RADS: 2-Benign FOLLOW UP: 1 Year Follow-up Recommend return to annual screening mammography.
== END 2023-07-18 09:27 | disposition home or self-care (01) ==
PROVIDERS: PCP Nurse Practitioner Women's Health; Visit Provider Nurse Practitioner Women's Health
DX: Z12.31 Encounter for screening mammogram for malignant neoplasm of breast (principal); R92.323 Mammographic fibroglandular density, bilateral breasts
CPT/HCPCS: 77063; 77067

== ENCOUNTER → 2023-08-14 10:26 | Outpatient (BNVA) | payer BC, MEDICAID, SELFPAY | PROVIDERS: PCP Nurse Practitioner; Visit Provider Nurse Practitioner | DX: R53.83 Other fatigue (principal) | CPT/HCPCS: 80053; 80061; 82728; 83036; 83550; 84443; 85025 ==

== ENCOUNTER 2023-08-21 10:41 | Day surgery (SDC) | payer BC, MEDICAID, SELFPAY ==
[2023-08-21 10:59] VITALS: BP 109/74; PULSE 106; RESP 18; TEMP 36.5; O2SAT 100
--- NOTE | 2023-08-21 11:08 | P.ANESASSM_ITS ---
Pre-Anesthetic Assessment Height/Weight: Height 1.6 m Weight 60.781 kg Temp Pulse Resp BP Pulse Ox 97.7 F 106 H 18 109/74 100 08/21/23 10:59 08/21/23 10:59 08/21/23 10:59 08/21/23 10:59 08/21/23 10:59 Operation Date: 08/21/23 11:45 Proposed Procedures p Colonoscopy 74338, G0121, Z12.11(Not Applicable) - Víctor Michaels DO Familial anesthetic complications: PONV Was Beta Harris taken within 24 hours: N/A Was Clonidine taken within 24 hours: N/A Last intake: Intake Last Liquid Date 08/20/23 Last Liquid Time 21:30 Last Solid Date 08/19/23 Last Solid Time 22:00 Social No alcohol and No tobacco Exam alert, oriented x 3, clear to auscultation bilaterally and regular rate & rhythm Airway Mallampati: Class II Dentition: full Anesthetic Plan ASA status: 1 Anesthesia: MAC Risk of > 500 ml blood loss (7ml/kg in children): No Medications/Allergies Home Medications Medication Instructions Recorded Confirmed Last Taken Type hydroxyzine HCl 10 mg tablet 10 mg PO BID PRN anxiety #60 tabs 08/14/23 08/19/23 Unknown Rx Vitamin C 1 tab PO DAILY 08/19/23 08/19/23 08/19/23 History Vitamin D (with calcium) 1 tab PO DAILY 08/19/23 08/19/23 08/19/23 History iron 1 tab PO DAILY 08/19/23 08/19/23 08/19/23 History Allergies Allergy/AdvReac Type Severity Reaction Status Date / Time No Known Allergies Allergy Verified 08/19/23 13:29 [facility] Anesthesia Medical History No pertinent past medical history Denies diabetes, asthma, hypertension, seizures, DVT/PE PMD: Has an appointment with Dr. Yen on 07/06/2021 Surgical History Status post hysterectomy 08/03/2021---total abdominal hysterectomy, bilateral salpingectomy for AUB with fibroid uterus by Dr. Rudd at [facility] [place]. Pathology showed---> benign cervix endometrium with multiple fibroids without atypia. Uterine weight-851 g History of wisdom tooth extraction History of tonsillectomy Tonsils and adenoids removed at the age of 17 History of left oophorectomy 1994---laparoscopic procedure with removal of left ovarian mass and drainage of right ovarian cyst. She states that the ovarian cyst was the size of a cantaloupe. Benign per patient Hx of section 1995-- delivery via Pfannenstiel incision performed in [place] Family History Father Hypertension Mother Murmur Family/Other Colon cancer maternal uncle, diagnosed at age 60 Sister Thyroid disease Denies family history of Ovarian cancer Diabetes CAD (coronary artery disease) Hyperlipidemia Breast cancer Anesthesia complication Bleeding disorder Uterine cancer Stroke Social History Smoking and tobacco/nicotine status: never used tobacco/nicotine Female Reproductive History Para: 1 Spontaneous abortions: No Data Anesthesia Cardiac Studies: Echocardiogram 06/20/21
[2023-08-21] MEDS: sodium chloride 0.9% 1,000 ML 30 ML IV (11:21)
--- NOTE | 2023-08-21 11:28 | P.HP_ITS ---
Providers/Chief Complaint Primary Care Provider: ARMEN Altamirano Chief Complaint: Z12.11 History of Present Illness Genesis David is a 47 year old female Review of Systems General: Reports: 10 or more systems reviewed and unremarkable except in HPI and below Medications/Allergies Home Medications Medication Instructions Recorded Confirmed Last Taken Type hydroxyzine HCl 10 mg tablet 10 mg PO BID PRN anxiety #60 tabs 08/14/23 08/19/23 Unknown Rx Vitamin C 1 tab PO DAILY 08/19/23 08/19/23 08/19/23 History Vitamin D (with calcium) 1 tab PO DAILY 08/19/23 08/19/23 08/19/23 History iron 1 tab PO DAILY 08/19/23 08/19/23 08/19/23 History Allergies Allergy/AdvReac Type Severity Reaction Status Date / Time No Known Allergies Allergy Verified 08/19/23 13:29 PFSH Acute PFSH: Medical History No pertinent past medical history Denies diabetes, asthma, hypertension, seizures, DVT/PE PMD: Has an appointment with Dr. Yen on 07/06/2021 Surgical History Status post hysterectomy 08/03/2021---total abdominal hysterectomy, bilateral salpingectomy for AUB with fibroid uterus by Dr. Rudd at [facility] [place] [place]. Pathology showed---> benign cervix endometrium with multiple fibroids without atypia. Uterine weight-851 g History of wisdom tooth extraction History of tonsillectomy Tonsils and adenoids removed at the age of 17 History of left oophorectomy 1994---laparoscopic procedure with removal of left ovarian mass and drainage of right ovarian cyst. She states that the ovarian cyst was the size of a cantaloupe. Benign per patient Hx of section 1995-- delivery via Pfannenstiel incision performed in [place] Family History Father Hypertension Mother Murmur Family/Other Colon cancer maternal uncle, diagnosed at age 60 Sister Thyroid disease Denies family history of Ovarian cancer Diabetes CAD (coronary artery disease) Hyperlipidemia Breast cancer Anesthesia complication Bleeding disorder Uterine cancer Stroke Social History Smoking and tobacco/nicotine status: never used tobacco/nicotine Female Reproductive History: Para: 1 Spontaneous abortions: No Vitals/I&O/Wt Last Vital Signs Temp 97.7 F 08/21/23 10:59 Pulse 106 H 08/21/23 10:59 Resp 18 08/21/23 10:59 BP 109/74 08/21/23 10:59 Pulse Ox 100 08/21/23 10:59 Weight last 48 hrs Weight 134 lb A&P Assessment and plan (1) Colon cancer screening: Plan Colonoscopy Attestations 2 Medical Necessity Statement*: home Coding Level of Care Code Acute Code for Chg Fwd Diagnoses Colon cancer screening Z12.11
[2023-08-21 11:58] VITALS: BP 100/62; PULSE 82; RESP 16; TEMP 36.8; O2SAT 100
[2023-08-21 12:15] VITALS: BP 122/77; PULSE 86; RESP 16; O2SAT 100
[2023-08-21 13:00] LABS: Carcinoembryonic Antigen 0.6 ng/mL (0.0-4.7)
--- NOTE | 2023-08-21 13:10 | ANE.PACU2 ---
Inpatient post-anesthesia follow up: Airway intact: Yes Vital signs: Temperature 98.2 F Pulse Rate 86 Respiratory Rate 16 Blood Pressure 122/77 Pulse Oximetry 100 Oxygen Delivery Me thod Room Air Oxygen Flow Rate Fraction of Inspir ed Oxygen Hydration adequate: Yes Nausea and vomiting: No Pain level: 1 Mental status: Baseline
== END 2023-08-21 13:10 | disposition home or self-care (01) ==
PROVIDERS: PCP Nurse Practitioner Women's Health; Visit Provider Surgery
PROC: 0DJD8ZZ Inspection of Lower Intestinal Tract, Via Natural or Artificial Opening Endoscopic (ICD-10-PCS; CPT 45378; principal; 2023-08-21 11:45)
DX: Z12.11 Encounter for screening for malignant neoplasm of colon (principal); C20 Malignant neoplasm of rectum; Z80.0 Family history of malignant neoplasm of digestive organs
CPT/HCPCS: 36415; 45380; 82378; 88305; 88342; J2704; J7030

== ENCOUNTER → 2023-09-09 06:00 | Day surgery (SDC) | payer BC, MEDICAID, SELFPAY ==
--- NOTE | 2023-09-09 05:25 | SUR.PREOP ---
09/08/23 0930 pt called to reschedule sx due to not knowing the plan going forward after port placement,dr north notified of this
== END ==
LOC: OR 11-20 13:04
PROVIDERS: PCP Nurse Practitioner; Visit Provider Surgery
DX: Z53.9 Procedure and treatment not carried out, unspecified reason (principal)
CPT/HCPCS: J2371; J2704

== ENCOUNTER 2023-09-09 12:59 | Oncology outpatient (recurring) (ONCR) | payer BC, MEDICAID, SELFPAY ==
--- NOTE | 2023-09-10 09:39 | N.ONRAD NP_ITS ---
Radiation Oncology New Patient Visit Patient: Genesis David MR#: [id number] : 1975> Age: 47> Sex: Female> Dictated by: Dr. Sunni Gamboa Date of Service: 09/09/2023 Referring Physician(s) : Ramon Diagnosis: anal cancer Radiotherapy to date: Summary > No prior radiation therapy. Chief Complaint / History of Present Illness: Patient is a 47-year-old lady who had blood in her stools 1 time. She visited with her PIE CRUST MIXER for a regular yearly follow-up and was asked if she had a colonoscopy. She said she had not ever had 1 so she was scheduled for 1 on August 21, 2023. At that time she was found to have a nonobstructing medium-sized friable ulcerated lesion at the dentate line. Pathology from this showed a squamous cell carcinoma. CT of the chest abdomen and felt this showed that the rectum was stool-filled. There was slight asymmetry at the level of the anal rectal junction. No other abnormalities were noted. 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 Rudd [place] [facility] [place]. Pathology showed---> benign cervix endometrium with multiple fibroids without atypia. Uterine weight-851 g History of wisdom tooth extraction History of tonsillectomy Tonsils and adenoids removed at the age of 17 History of left oophorectomy 1994---laparoscopic procedure with removal of left ovarian mass and drainage of right ovarian cyst. She states that the ovarian cyst was the size of a cantaloupe. Benign per patient Hx of section 1995-- delivery via Pfannenstiel incision performed in [place] Family History: Father Hypertension Mother Murmur Family/Other Colon cancer maternal uncle, diagnosed at age 60 Sister Thyroid disease Denies family history of Ovarian cancer Diabetes CAD (coronary artery disease) Hyperlipidemia Breast cancer Anesthesia complication Bleeding disorder Uterine cancer Stroke Social History: Smoking and tobacco/nicotine status: never used tobacco/nicotine Second hand smoke exposure: Yes Female Reproductive History: Dietary Habits Caffeine: Yes Caffeine intake frequency: coffee Current Complaints / Review of Systems: . Vital Signs: Performed on 09/09/2023 2:29 PM BMI - 22.851 kg/m2, Height - 63 in, Weight - 129 lbs, Temperature - 97.8 f, Pulse - 100 /min, Respiration - 18 /min, O2 Sat - 98 %, Pain - 0, Fatigue - 0 and BP - 118/ 72 mm(hg). Physical Exam: General: Patient is in no apparent distress sitting comfortably in the chair. She is accompanied by her . HEENT: Normocephalic atraumatic. Pupils are equal, sclera clear, extraocular muscles intact Pulmonary: Respiratory rate is regular nonlabored Cardiovascular: Regular rate and rhythm Abdomen: Nonprotuberant and nontender Extremities: No obvious gross edema noted Skin: Warm and dry without lesions Neurological: Alert and orient x 3. Gait and speech within normal limits Psych: Affect appropriate for current situation Performance Status: 100 Pathology: Squamous cell carcinoma Imaging: See HPI Impression: Squamous of carcinoma of the anal canal Plan: I reviewed with her at this time the history and her colonoscopy. We talked about her symptoms which have been fairly minimal. We reviewed the typical course of treatment which involves chemotherapy along with radiation. She is seen a surgeon and has been recommended that she proceed with the typical course of treatment. She otherwise would have to have a colostomy. We reviewed the simulation process. We discussed the daily treatment regiment. We reviewed the risks and side effects both acute and long-term. We talked about how severe the reaction will be across her perineum. I gave her the list of supplies to get try and get picked up in the next week or so which included a sitz bath, Desitin, and a donut or pillow to sit on. I encouraged her to continue to take her normal supplements and vitamins. All of her questions were answered. At this point she is agreed to proceed. She will undergo simulation and begin her treatments coordinating with her chemotherapy. Signed by: 09/10/2023 9:37:51 AM <<Signature on File>> Time spent with patient: 60 CPT Code: CPT Code:
== END 2023-09-15 23:59 | disposition home or self-care (01) ==
PROVIDERS: PCP Nurse Practitioner Women's Health; Visit Provider Internal Medicine Medical Oncology
DX: C21.1 Malignant neoplasm of anal canal (principal)
CPT/HCPCS: 77263; 77300; 77301; 77334; 77338; 77470

== ENCOUNTER 2023-09-24 08:35 | Day surgery (SDC) | payer BC, MEDICAID, SELFPAY ==
[2023-09-24] VITALS (8 sets, daily range): BP systolic 105–141; BP diastolic 63–79; PULSE 71–87; RESP 10–18; TEMP 36.2–36.6; O2SAT 99–100
--- NOTE | 2023-09-24 08:40 | SC_ITS ---
WS: [id number] C-arm fluoroscopy for placement of infusion catheter, 09/24/2023 Clinical Data: Mediport placement Comparison: Portable chest, 06/20/2021 Findings: Dr. Michaels inserted the left infusion catheter and it ends in the superior vena cava. SC/C-arm FL for CVA [id number] Impression: Insertion left infusion catheter.
--- NOTE | 2023-09-24 08:40 | XR_ITS ---
WS: [id number] Portable AP upright chest, 09/24/2023 Clinical Data: Postop Mediport placement Comparison: Portable chest, 06/20/2021 Findings: The infusion catheter enters the left subclavian vein and ends in the superior vena cava. N o nodules, masses or effusions are seen. The heart is normal. The pulmonary vascularity is not increa sed. No pneumonia or pneumothorax is seen. XR/XR chest 1V portable [id number] Impression: Satisfactory infusion of left infusion catheter.
[2023-09-24] MEDS: sodium chloride 0.9% 1,000 ML 30 ML IV (08:57)
--- NOTE | 2023-09-24 09:03 | W.PM.OPSUD ---
Surgery/Procedure H&P Update DATE OF PROCEDURE: September 24, 2023 DATE H&P PERFORMED: 09/06/23 H&P UPDATE INFORMATION: I have reviewed H&P completed within last 30 days, I have examined patient prior to procedure and No changes to prior documentation PLANNED PROCEDURE: Operation Date: 09/24/23 10:10 Proposed Procedures p Portacath Placement 06501, C21.8(Not Applicable) - Víctor Michaels DO
--- NOTE | 2023-09-24 09:24 | ANES.PREANE2 ---
Pre-Anesthetic Assessment Height/Weight: Height 1.6 m Weight 58.967 kg Temp Pulse Resp BP Pulse Ox O2 Del Method 97.1 F L 87 18 141/79 100 Room Air 09/24/23 08:46 09/24/23 08:46 09/24/23 08:46 09/24/23 08:46 09/24/23 08:46 09/24/23 08:46 Operation Date: 09/24/23 10:10 Proposed Procedures p Portacath Placement 21749, C21.8(Not Applicable) - Víctor Michaels DO Familial anesthetic complications: PONV Was Beta Harris taken within 24 hours: N/A Was Clonidine taken within 24 hours: N/A Last intake: Intake Last Liquid Date 09/23/23 Last Liquid Time 20:00 Last Solid Date 09/23/23 Last Solid Time 20:00 Social No alcohol and No tobacco Exam alert, oriented x 3, clear to auscultation bilaterally and regular rate & rhythm Airway Mallampati: Class II Dentition: full Anesthetic Plan ASA status: 2 Anesthesia: General Risk of > 500 ml blood loss (7ml/kg in children): No Medications/Allergies Home Medications Medication Instructions Recorded Confirmed Last Taken Type hydroxyzine HCl 10 mg tablet 10 mg PO BID PRN anxiety #60 tabs 08/14/23 09/23/23 Unknown Rx Vitamin C 1 tab PO DAILY 08/19/23 09/23/23 09/23/23 History Vitamin D (with calcium) 1 tab PO DAILY 08/19/23 09/23/23 09/23/23 History iron 1 tab PO DAILY 08/19/23 09/23/23 09/23/23 History capecitabine 150 mg tablet 300 mg (2 x 150 mg) PO BID #100 09/10/23 09/23/23 Unknown Rx tabs capecitabine 500 mg tablet 1,000 mg (2 x 500 mg) PO BID #100 09/10/23 09/23/23 Unknown Rx tabs Allergies Allergy/AdvReac Type Severity Reaction Status Date / Time No Known Allergies Allergy Verified 09/09/23 13:19 Current Medications Generic Name Dose Route Start Last Admin Trade Name Freq PRN Reason Stop Dose Admin Sodium Chloride 1,000 mls @ 30 mls/hr 09/24/23 08:45 09/24/23 08:57 Sodium Chloride 0.9% IV 09/25/23 08:44 30 mls/hr .Q24H TETE Administration PFSH Anesthesia Medical History Iron deficiency anemia Squamous cell carcinoma of anal canal Surgical History Status post hysterectomy 08/03/2021---total abdominal hysterectomy, bilateral salpingectomy for AUB with fibroid uterus by Dr. Rudd [place] [facility] [place] [facility] [place] Pathology showed---> benign cervix endometrium with multiple fibroids without atypia. Uterine weight-851 g History of wisdom tooth extraction History of tonsillectomy Tonsils and adenoids removed at the age of 17 History of left oophorectomy 1994---laparoscopic procedure with removal of left ovarian mass and drainage of right ovarian cyst. She states that the ovarian cyst was the size of a cantaloupe. Benign per patient Hx of section 1995-- delivery via Pfannenstiel incision performed in [place] Family History Father Hypertension Mother Murmur Family/Other Colon cancer maternal uncle, diagnosed at age 60 Sister Thyroid disease Denies family history of Ovarian cancer Diabetes CAD (coronary artery disease) Hyperlipidemia Breast cancer Anesthesia complication Bleeding disorder Uterine cancer Stroke Social History Smoking and tobacco/nicotine status: never used tobacco/nicotine Second hand smoke exposure: Yes Female Reproductive History Para: 1 Spontaneous abortions: No Data Anesthesia Cardiac Studies: Echocardiogram 06/20/21
[2023-09-24] MEDS: scopolamine 1.5 Patch 1 PATCH TRANSDERMA (09:26)
[2023-09-24] MEDS: ceFAZolin 2,000 mg SDV 2000 MG IVP (09:38)
[2023-09-24] MEDS: heparin, porcine 1,000 unit/mL INJ 10 mL 10000 UNIT IRRIGATION (09:56)
[2023-09-24] MEDS: lidocaine-epi 2% PF 1:200,000 20 mL SDV XX (09:56)
--- NOTE | 2023-09-24 10:17 | PM.OP ---
Operative Report Date of procedure: September 24, 2023 Pre-op diagnosis: Anal cancer Post-op diagnosis: same Surgeon: Víctor Michaels DO Procedure: Post-op diagnosis: same Procedure done: Mediport placement Intraoperative interpretation of fluoroscopy Implants: PowerPort Specimens removed/disposition: None Surgeon: Víctor Michaels DO Anesthesia: MAC and Local Estimated blood loss (mL): 5 Complications: None apparent Procedure: The patient was taken to the operating room and placed supine on the operating room table. All bony prominences were padded. She was given IV sedation and monitored throughout the case by the anesthesia personnel. SCDs were placed and turned on. The arms were tucked to the side. Patient received Ancef 2 g preoperatively IV. The bilateral chest wall was prepped and draped in usual sterile fashion using chlorhexidine base prep. Sterile drapes were applied. We did procedure pause prior to beginning. An 18 gauge needle was placed in the left subclavian vein. Dark, nonpulsatile blood was aspirated. A guidewire was placed through the needle centrally toward the atrial/vena caval junction. Fluoroscopy visualized good placement. The needle was removed and the guidewire was clipped to the drape with a hemostat. Further local anesthetic was infiltrated in the soft tissues of the left chest wall and a #15 blade was used to make a horizontal skin incision. A subcutaneous Mediport pocket was created using Bovie cautery, dissecting down through the skin and subcutaneous tissues. Meticulous hemostasis was achieved. The Mediport was sutured in position using 3-0 vicryl suture x2 stitches. A #15 blade was used to make a small skin yaquelin around the guidewire insertion area. The Mediport tubing was tunneled through the subcutaneous tissues up to the needle insertion location. A dilator with a peel-away sheath was placed over the guidewire and placed centrally. After measuring the Mediport tubing was cut to length so that the tip would end at the atrial/vena caval junction. The inner cannula and the guidewire were removed, leaving the dilator sheath in place. The Mediport was flushed. The tip of the catheter was inserted through the peel-away sheath and the peel-away sheath removed in the standard fashion. The Mediport was accessed with a straight Baker needle and dark, nonpulsatile blood was aspirated and flushed using heparinized saline to hep-lock the Mediport. Final fluoroscopy visualization showed no kink in the catheter and the tip of the Mediport tubing near the atrial/vena caval junction. There is no obvious pneumothorax. Both skin incisions were thoroughly irrigated and suctioned dry. Meticulous hemostasis noted. The dermis was approximated with 3-0 Vicryl in an interrupted fashion. Skin was closed with Dermabond. Patient was awakened from anesthesia and transferred via her cart to the recovery room in stable condition. All needle, sponge, and instrument counts were correct per the operating personnel x2 counts.
--- NOTE | 2023-09-24 11:45 | ANE.PACU2 ---
Inpatient post-anesthesia follow up: Airway intact: Yes Vital signs: Temperature 97.7 F Pulse Rate 71 Respiratory Rate 16 Blood Pressure 120/74 Pulse Oximetry 99 Oxygen Delivery Me thod Room Air Oxygen Flow Rate Fraction of Inspir ed Oxygen Hydration adequate: Yes Nausea and vomiting: No Pain level: 1 Mental status: Baseline
== END 2023-09-24 11:45 | disposition home or self-care (01) ==
PROVIDERS: PCP Nurse Practitioner; Visit Provider Surgery
PROC: (CPT 36561; principal; 2023-09-24 10:10)
DX: C21.0 Malignant neoplasm of anus, unspecified (principal)
CPT/HCPCS: 36561; 71045; 76000; 77001; C1788; J0690; J1644; J2250; J2371; J2704; J3010; J7030

== ENCOUNTER 2023-10-10 13:51 | Oncology outpatient (recurring) (ONCR) | payer BC, MEDICAID, SELFPAY ==
[2023-09-25 08:23] LABS: Basophils % 1.1 %; Eosinophils # 0.1 10^3/uL (0.0-0.8); Eosinophils % 1.7 %; Hematocrit 32.2 % (36-47); Lymphocytes # 0.9 10^3/uL (0.8-4.8); Lymphocytes % 25.6 %; Mean Corpuscular HGB Conc 30.7 g/dL (30-55); Mean Corpuscular Hemoglobin 29.6 pg (27-33); Mean Corpuscular Volume 96.1 fl (85-98); Mean Platelet Volume 12.3 fL (7.4-10.4); Monocytes # 0.4 10^3/uL (0.2-0.9); Monocytes % 11.9 %; Neutrophils # 2.08 10^3/uL (1.8-7.7); Neutrophils % 59.1 %; Nucleated Red Blood Cells % 0 %; Platelet Count 134 10^3/cmm (157-399); Red Blood Count 3.35 10^6/uL (3.85-5.65); Red Cell Distribution Width 15.1 % (12.1-15.1); White Blood Count 3.52 10^3/uL (3.29-11.43)
[2023-09-25 08:42] LABS: Alanine Aminotransferase 17 U/L (0-33); Albumin Level 3.6 g/dL (3.5-5.2); Alkaline Phosphatase 87 U/L (35-105); Aspartate Amino Transferase 27 U/L (0-32); Blood Urea Nitrogen 6 mg/dL (6-20); Carbon Dioxide 25 mmol/L (22-29); Chloride 104 mmol/L (98-107); Globulin 4.1 g/dL (1.3-4.6); Glomerular Filtration Rate 106.3 mL/min (90-130); Glucose 94 mg/dL (65-115); Osmolality Calculated 283 mOsm/kg (285-295); Sodium 138 mmol/L (136-145); Total Bilirubin 0.2 mg/dL (0.15-1.2); Total Protein 7.7 g/dL (6.6-8.7)
[2023-09-25] MEDS: ondansetron 2 mg/ML SDV 2 mL 8 MG IVP (11:11)
[2023-09-25] MEDS: sodium chloride 0.9% 250 ML 75 ML IV (11:11)
[2023-09-25 11:23] VITALS: BP 115/68; PULSE 68; RESP 16; TEMP 36.2; O2SAT 100
[2023-09-25] MEDS: mitoMYcin 20 mg SDV 19 MG IVP (11:52)
[2023-09-25 12:35] VITALS: BP 114/68; PULSE 59; TEMP 36.5; O2SAT 99
--- NOTE | 2023-10-01 14:39 | ONCRAD TMN_ITS ---
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 ID: [id number], Energy: 6X, Dose/Fx (cGy): 200, #Fx: , Dose Correction (cGy): 0, Total Dose Delivered (cGy): 800, Start Date: 09/25/2023, Elapsed Days: 5 Reason for visit: The patient is being seen today as part of their regularly scheduled weekly on treatment visits to assess for acute toxicities from radiotherapy. Review of Systems: This is a pleasant 47-year-old female non-smoker who has anal carcinoma being treated with Xeloda and mitomycin C with first dose being on 09/25/2023. She relates today of having significant nausea. She is on Zofran 4 and we will increase her to 8 mg 3 times daily. This will be on schedule routine at this time. Labs last week showed a platelet count of 134,000. Labs will be obtained tomorrow. Weight is 123 pounds this date and she is had only 4 fractions XRT at this time. Weight initially was 129 pounds so she is lost 6 pounds over the last week. Vital Signs: Performed on 10/01/2023 2:15 PM BMI - 21.824 kg/m2, Height - 63 in, Weight - 123.2 lbs, Temperature - 97.1 f, Pulse - 101 /min (high), Respiration - 18 /min, O2 Sat - 98 %, Pain - 0, Fatigue - 8 and BP - 125/ 82 mm(hg). Physical Exam: Alert and appears sickly. Imaging: Radiation therapy imaging related to accurate target localization (i.e. KV, MV and CBCT) was reviewed. Appropriate changes, if any, were made to ensure treatment accuracy. Plan: Continue XRT See medical oncology tomorrow Increase Zofran to 8 mg 3 times daily and take it on a schedule Labs tomorrow. 6 pound weight loss since last visit Signed by: Luis Serrato 10/01/2023 2:37:46 PM
[2023-10-01] MEDS: sodium chloride 0.9% 1,000 ML 999 ML IV (15:01)
[2023-10-01] MEDS: ondansetron 2 mg/ML SDV 2 mL 8 MG IVP (15:02)
[2023-10-01 16:19] VITALS: BP 120/71; PULSE 78; RESP 16; TEMP 36.8; O2SAT 98
[2023-10-02 13:57] LABS: Basophils % 0.5 %; Eosinophils % 1.4 %; Hematocrit 30.3 % (36-47); Lymphocytes # 0.4 10^3/uL (0.8-4.8); Lymphocytes % 17.8 %; Mean Corpuscular HGB Conc 32.3 g/dL (30-55); Mean Corpuscular Volume 92.7 fl (85-98); Mean Platelet Volume 12.8 fL (7.4-10.4); Monocytes # 0.1 10^3/uL (0.2-0.9); Monocytes % 3.7 %; Neutrophils # 1.61 10^3/uL (1.8-7.7); Neutrophils % 75.2 %; Nucleated Red Blood Cells % 0 %; Platelet Count 100 10^3/cmm (157-399); Red Blood Count 3.27 10^6/uL (3.85-5.65); Red Cell Distribution Width 14.3 % (12.1-15.1); White Blood Count 2.14 10^3/uL (3.29-11.43)
[2023-10-02 14:16] LABS: Alanine Aminotransferase 19 U/L (0-33); Albumin Level 3.6 g/dL (3.5-5.2); Alkaline Phosphatase 72 U/L (35-105); Anion Gap 11.8 (5-19); Aspartate Amino Transferase 25 U/L (0-32); Blood Urea Nitrogen 12 mg/dL (6-20); Calcium 8.6 mg/dL (8.5-10.5); Carbon Dioxide 24 mmol/L (22-29); Chloride 103 mmol/L (98-107); Creatinine Clr Calc Pharmacy 98.2008; Glomerular Filtration Rate 106.3 mL/min (90-130); Glucose 116 mg/dL (65-115); Osmolality Calculated 281 mOsm/kg (285-295); Potassium 3.8 mmol/L (3.5-5.1); Sodium 135 mmol/L (136-145); Total Bilirubin 0.3 mg/dL (0.15-1.2); Total Protein 7.6 g/dL (6.6-8.7)
--- NOTE | 2023-10-08 14:20 | ONCRAD TMN_ITS ---
Radiation Oncology Weekly Treatment Management Patient: Lakshmi David#: [id number] : 1975 Attending Physician: Dr. 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 ID: [id number], Energy: 6X, Dose/Fx (cGy): 200, #Fx: , Dose Correction (cGy): 0, Total Dose Delivered (cGy): 2,000, Start Date: 09/25/2023, Elapsed Days: 13 Reason for visit: The patient is being seen today as part of their regularly scheduled weekly on treatment visits to assess for acute toxicities from radiotherapy. Review of Systems: Patient last week had significant nausea and this is resolved. This week she says her skin is feeling slightly tender. Vital Signs: Performed on 10/08/2023 2:00 PM BMI - 22.497 kg/m2, Height - 63 in, Weight - 127 lbs, Temperature - 97 f, Pulse - 80 /min, Respiration - 16 /min, O2 Sat - 100 %, Pain - 0, Fatigue - 1 and BP - 122/ 67 mm(hg). Physical Exam: On exam the perianal area has no significant changes. It is mildly erythematous. Imaging: Radiation therapy imaging related to accurate target localization (i.e. KV, MV and CBCT) was reviewed. Appropriate changes, if any, were made to ensure treatment accuracy. Plan: Will continue with her treatments as planned. She will continue using her medication and eating as best she can. Signed by: Dr. Sunni Gamboa 10/08/2023 2:17:57 PM
[2023-10-09 14:47] LABS: Eosinophils # 0.1 10^3/uL (0.0-0.8); Eosinophils % 3.6 %; Hematocrit 28.7 % (36-47); Lymphocytes # 0.4 10^3/uL (0.8-4.8); Lymphocytes % 20.4 %; Mean Corpuscular HGB Conc 32.8 g/dL (30-55); Mean Corpuscular Hemoglobin 30.5 pg (27-33); Mean Corpuscular Volume 93.2 fl (85-98); Mean Platelet Volume 12.4 fL (7.4-10.4); Monocytes # 0.4 10^3/uL (0.2-0.9); Monocytes % 20.9 %; Neutrophils # 1.07 10^3/uL (1.8-7.7); Neutrophils % 54.6 %; Nucleated Red Blood Cells % 0 %; Platelet Count 48 10^3/cmm (157-399); Red Blood Count 3.08 10^6/uL (3.85-5.65); Red Cell Distribution Width 14.6 % (12.1-15.1); White Blood Count 1.96 10^3/uL (3.29-11.43)
[2023-10-09 15:16] LABS: Alanine Aminotransferase 18 U/L (0-33); Albumin Level 3.6 g/dL (3.5-5.2); Alkaline Phosphatase 69 U/L (35-105); Aspartate Amino Transferase 20 U/L (0-32); Blood Urea Nitrogen 8 mg/dL (6-20); Calcium 8.8 mg/dL (8.5-10.5); Carbon Dioxide 24 mmol/L (22-29); Chloride 102 mmol/L (98-107); Creatinine Clr Calc Pharmacy 97.2268; Globulin 3.8 g/dL (1.3-4.6); Glomerular Filtration Rate 106.3 mL/min (90-130); Glucose 91 mg/dL (65-115); Osmolality Calculated 278 mOsm/kg (285-295); Sodium 135 mmol/L (136-145); Total Bilirubin 0.2 mg/dL (0.15-1.2); Total Protein 7.4 g/dL (6.6-8.7)
== END 2023-10-10 23:59 | disposition home or self-care (01) ==
PROVIDERS: Internal Medicine Medical Oncology; Nurse Practitioner Family; PCP Nurse Practitioner; Visit Provider Radiology Radiation Oncology
DX: C21.8 Malignant neoplasm of overlapping sites of rectum, anus and anal canal (principal); Z51.0 Encounter for antineoplastic radiation therapy
CPT/HCPCS: 36591; 77336; 77386; 80053; 82607; 82728; 83550; 85025; 87806; 96360; 96375; 96409; 99024; J2405; J7030; J7050; J9280

== ENCOUNTER 2023-10-16 14:00 | Oncology outpatient (recurring) (ONCR) | payer BC, MEDICAID, SELFPAY ==
--- NOTE | 2023-10-15 15:33 | ONCRAD TMN_ITS ---
Radiation Oncology Weekly Treatment Management Patient: Genesis David MR#: [id number] : 1975 Attending Physician: Dr. 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 ID: [id number], Energy: 6X, Dose/Fx (cGy): 200, #Fx: 15 , Dose Correction (cGy): 0, Total Dose Delivered (cGy): 3,000, Start Date: 09/25/2023, Elapsed Days: 20 Reason for visit: The patient is being seen today as part of their regularly scheduled weekly on treatment visits to assess for acute toxicities from radiotherapy. Review of Systems: Patient is beginning to become more sore in the perianal area Vital Signs: Performed on 10/15/2023 2:00 PM BMI - 22.143 kg/m2, Height - 63 in, Weight - 125 lbs, Temperature - 97.6 f, Pulse - 79 /min, Respiration - 16 /min, O2 Sat - 100 %, Pain - 5, Fatigue - 0 and BP - 106/ 61 mm(hg)(/low). Physical Exam: On examination she has some hyperpigmentation across the labia and some erythema around the anal area Imaging: Radiation therapy imaging related to accurate target localization (i.e. KV, MV and CBCT) was reviewed. Appropriate changes, if any, were made to ensure treatment accuracy. Plan: We talked about soaking in her tub and air drying as best possible. Perhaps wearing a skirt with nothing under it at home. I asked her to continue to use the Desitin and since she is hesitant to use any pain medicine I asked her to take Tylenol 3 times a day. We talked about how the next 3 weeks will be increasingly severe before she begins to heal from the treatments. Signed by: Dr. Sunni Gamboa 10/15/2023 3:31:20 PM
[2023-10-16 14:04] LABS: Basophils % 0.6 %; Eosinophils # 0.1 10^3/uL (0.0-0.8); Eosinophils % 3.6 %; Hematocrit 30.2 % (36-47); Lymphocytes # 0.3 10^3/uL (0.8-4.8); Lymphocytes % 10.3 %; Mean Corpuscular HGB Conc 33.8 g/dL (30-55); Mean Corpuscular Hemoglobin 31.2 pg (27-33); Mean Corpuscular Volume 92.4 fl (85-98); Mean Platelet Volume 10.1 fL (7.4-10.4); Monocytes # 0.3 10^3/uL (0.2-0.9); Monocytes % 9.4 %; Neutrophils # 2.49 10^3/uL (1.8-7.7); Neutrophils % 75.8 %; Nucleated Red Blood Cells % 0 %; Platelet Count 59 10^3/cmm (157-399); Red Blood Count 3.27 10^6/uL (3.85-5.65); Red Cell Distribution Width 15.3 % (12.1-15.1); White Blood Count 3.29 10^3/uL (3.29-11.43)
[2023-10-16 14:21] LABS: Alanine Aminotransferase 16 U/L (0-33); Albumin Level 3.4 g/dL (3.5-5.2); Alkaline Phosphatase 68 U/L (35-105); Anion Gap 12.1 (5-19); Aspartate Amino Transferase 19 U/L (0-32); Blood Urea Nitrogen 8 mg/dL (6-20); Calcium 8.7 mg/dL (8.5-10.5); Carbon Dioxide 24 mmol/L (22-29); Chloride 104 mmol/L (98-107); Globulin 3.7 g/dL (1.3-4.6); Glomerular Filtration Rate 106.3 mL/min (90-130); Glucose 113 mg/dL (65-115); Osmolality Calculated 281 mOsm/kg (285-295); Potassium 4.1 mmol/L (3.5-5.1); Sodium 136 mmol/L (136-145); Total Bilirubin 0.3 mg/dL (0.15-1.2); Total Protein 7.1 g/dL (6.6-8.7)
== END 2023-10-16 23:59 | disposition home or self-care (01) ==
PROVIDERS: Nurse Practitioner Family; PCP Nurse Practitioner; Visit Provider Radiology Radiation Oncology
DX: Z53.9 Procedure and treatment not carried out, unspecified reason; Z51.0 Encounter for antineoplastic radiation therapy; C21.1 Malignant neoplasm of anal canal
CPT/HCPCS: 36591; 77386; 80053; 85025; 99024

== ENCOUNTER 2023-10-29 13:46 | Oncology outpatient (recurring) (ONCR) | payer BC, MEDICAID, SELFPAY ==
--- NOTE | 2023-10-22 14:30 | ONCRAD TMN_ITS ---
Radiation Oncology Weekly Treatment Management Patient: Frankie Romo MR#: [id number] : 1975> Attending Physician: Dr. 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 ID: [id number], Energy: 6X, Dose/Fx (cGy): 200, #Fx: , Dose Correction (cGy): 0, Total Dose Delivered (cGy): 4,000, Start Date: 09/25/2023, Elapsed Days: 27 Reason for visit: The patient is being seen today as part of their regularly scheduled weekly on treatment visits to assess for acute toxicities from radiotherapy. Review of Systems: Patient has noticed no additional problems or issues this week Vital Signs: Performed on 10/22/2023 2:25 PM BMI - 22.32 kg/m2, Height - 63 in, Weight - 126 lbs, Temperature - 97.3 f, Pulse - 104 /min (high), Respiration - 18 /min, O2 Sat - 100 %, Pain - 1, Fatigue - 0 and BP - 118/ 80 mm(hg). Physical Exam: On exam the perineum is little more erythematous today. There are no areas of moist or dry desquamation Imaging: Radiation therapy imaging related to accurate target localization (i.e. KV, MV and CBCT) was reviewed. Appropriate changes, if any, were made to ensure treatment accuracy. Plan: Will continue with her treatments as planned. She gets her counts checked tomorrow. Will have 1 more week of treatment. Signed by: Dr. Sunni Gamboa 10/22/2023 2:27:43 PM
[2023-10-23 13:44] VITALS: BMI 22.5
[2023-10-23 14:00] VITALS: BP 109/68; PULSE 90; RESP 16; TEMP 36.6; O2SAT 98
[2023-10-23 14:08] LABS: Basophils % 0.4 %; Eosinophils # 0.2 10^3/uL (0.0-0.8); Eosinophils % 6.1 %; Hematocrit 29.7 % (36-47); Lymphocytes # 0.3 10^3/uL (0.8-4.8); Lymphocytes % 10.6 %; Mean Corpuscular HGB Conc 32.7 g/dL (30-55); Mean Corpuscular Hemoglobin 30.5 pg (27-33); Mean Corpuscular Volume 93.4 fl (85-98); Monocytes # 0.4 10^3/uL (0.2-0.9); Neutrophils # 1.81 10^3/uL (1.8-7.7); Neutrophils % 68.5 %; Nucleated Red Blood Cells % 0 %; Platelet Count 114 10^3/cmm (157-399); Red Blood Count 3.18 10^6/uL (3.85-5.65); Red Cell Distribution Width 16.2 % (12.1-15.1); White Blood Count 2.64 10^3/uL (3.29-11.43)
[2023-10-23 14:25] LABS: Alanine Aminotransferase 15 U/L (0-33); Albumin Level 3.6 g/dL (3.5-5.2); Alkaline Phosphatase 58 U/L (35-105); Aspartate Amino Transferase 18 U/L (0-32); Blood Urea Nitrogen 9 mg/dL (6-20); Calcium 8.9 mg/dL (8.5-10.5); Carbon Dioxide 26 mmol/L (22-29); Chloride 99 mmol/L (98-107); Globulin 3.7 g/dL (1.3-4.6); Glomerular Filtration Rate 106.3 mL/min (90-130); Glucose 97 mg/dL (65-115); Osmolality Calculated 277 mOsm/kg (285-295); Sodium 134 mmol/L (136-145); Total Bilirubin 0.2 mg/dL (0.15-1.2); Total Protein 7.3 g/dL (6.6-8.7)
--- NOTE | 2023-10-29 14:11 | N.ONRD TS_ITS ---
Radiation Oncology Treatment Summary Patient: Genesis David MR#: [id number] : 1975 Age: 47 Sex: Female Dictated by: Dr. 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 ID: [id number], Energy: 6X, Dose/Fx (cGy): 200, #Fx: , Dose Correction (cGy): 0, Total Dose Delivered (cGy): 5,000, Start Date: 09/25/2023, End Date: 10/29/2023, Elapsed Days: 34 Clinical Summary: The patient tolerated RT well. She developed a brisk skin reaction with erythema and hyperpigmentation. At the end of her treatment the areas of hyperpigmentation had not yet peeled. She was able to complete her treatments without a break. Plan: End of treatment today. Continue on the above medication until the skin reaction resolves. Follow up in one month. Signed by: Dr. Sunni Gamboa>10/29/2023 2:09:29 PM <<Signature on File>>
== END 2023-11-16 23:55 | disposition home or self-care (01) ==
PROVIDERS: Nurse Practitioner Family; PCP Nurse Practitioner; Visit Provider Radiology Radiation Oncology
DX: Z51.0 Encounter for antineoplastic radiation therapy; C21.1 Malignant neoplasm of anal canal
CPT/HCPCS: 77336; 77386; 80053; 85025; 99024

== ENCOUNTER 2023-11-27 12:52 | Oncology outpatient (recurring) (ONCR) | payer BC, MEDICAID, SELFPAY ==
[2023-11-27 13:29] LABS: Basophils % 0.5 %; Eosinophils # 0.1 10^3/uL (0.0-0.8); Eosinophils % 1.9 %; Hematocrit 31.6 % (36-47); Lymphocytes # 0.5 10^3/uL (0.8-4.8); Lymphocytes % 12.3 %; Mean Corpuscular HGB Conc 33.5 g/dL (30-55); Mean Corpuscular Hemoglobin 31.8 pg (27-33); Mean Corpuscular Volume 94.9 fl (85-98); Mean Platelet Volume 10.6 fL (7.4-10.4); Monocytes # 0.4 10^3/uL (0.2-0.9); Monocytes % 10.2 %; Neutrophils # 3.16 10^3/uL (1.8-7.7); Neutrophils % 74.9 %; Nucleated Red Blood Cells % 0 %; Platelet Count 142 10^3/cmm (157-399); Red Blood Count 3.33 10^6/uL (3.85-5.65); Red Cell Distribution Width 15.7 % (12.1-15.1); White Blood Count 4.22 10^3/uL (3.29-11.43)
[2023-11-27 13:41] LABS: Alanine Aminotransferase 18 U/L (0-33); Albumin Level 3.5 g/dL (3.5-5.2); Alkaline Phosphatase 66 U/L (35-105); Anion Gap 12.1 (5-19); Aspartate Amino Transferase 28 U/L (0-32); Blood Urea Nitrogen 7 mg/dL (6-20); Calcium 8.8 mg/dL (8.5-10.5); Carbon Dioxide 26 mmol/L (22-29); Chloride 103 mmol/L (98-107); Globulin 3.8 g/dL (1.3-4.6); Glomerular Filtration Rate 105.8 mL/min (90-130); Glucose 103 mg/dL (65-115); Osmolality Calculated 282 mOsm/kg (285-295); Potassium 4.1 mmol/L (3.5-5.1); Sodium 137 mmol/L (136-145); Total Bilirubin 0.3 mg/dL (0.15-1.2); Total Protein 7.3 g/dL (6.6-8.7)
--- NOTE | 2023-11-27 13:56 | ONCRAD EPV_ITS ---
Radiation Oncology Established Patient Visit Patient: Genesis David [id number] : 1975 Age: 48 Sex: Female Dictated by: Dr. 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 She is in good spirits. She has good appetite. She denies any new aches or pains. She is sleeping well. Her energy level is good. She got her port out last week. Her bowel movements remain soft although she does have some discomfort with each bowel movement. This is improving over the last week. She is down to soaking about once a day. She is increased her physical activity and is looking forward to going back to work Radiotherapy to Date: Course: Rectum 2023, Treatment Site: Anal cancer, Ref. ID: [id number], Energy: 6X, Dose/Fx (cGy): 200, #Fx: , Dose Correction (cGy): 0, Total Dose Delivered (cGy): 5,000, Start Date: 09/25/2023, End Date: 10/29/2023, Elapsed Days: 34 Current History: Current Medications: Allergies: Current Complaints / Review of Systems: . Vital Signs: Performed on 11/27/2023 1:41 PM BMI - 22.568 kg/m2, Height - 63 in, Weight - 127.4 lbs, Temperature - 97.2 f, Pulse - 95 /min, Respiration - 18 /min, O2 Sat - 99 %, Pain - 1.5, Fatigue - 0 and BP - 116/ 75 mm(hg). Physical Exam: General: Alert and oriented x 3. No acute distress. HEENT: Normocephalic, atraumatic. Extraocular Movements Intact: Pupils Equal, Round, Reactive to Light . ABDOMEN: Soft, nontender, nondistended without masses or organomegaly. Bowell sounds are present. The area in the inguinal region is hyperpigmented. All of the skin has healed. The anal opening is also healed. There is no moist or dry desquamation and location. Performance Status: 100 Lab: None pending. Pathology: Primary, c21.1 - malignant neoplasm of anal canal, Diagnosed 09/10/2023 (active) . Imaging: See HPI Impression: Anal cancer 1 month from completion of treatment Plan: At this time she is recovered nicely. She is scheduled for a colonoscopy first week of January. I will get her PET scan scheduled for sometime after that. She is ready to go back to work in a few weeks. She did request going back to work at part-time for the first couple weeks. I think this is a good idea considering the toxic treatment she has been through. At this point we will see her in 6 to 9 months coordinating with her other appointments. Will also call her with the results of her PET scan Signed by: 11/27/2023 1:55:15 PM <<Signature on File>> Time spent with patient: CPT Code: CPT Code:
== END 2023-12-16 23:59 | disposition home or self-care (01) ==
PROVIDERS: Internal Medicine Medical Oncology; PCP Nurse Practitioner; Visit Provider Radiology Radiation Oncology
DX: C21.8 Malignant neoplasm of overlapping sites of rectum, anus and anal canal
CPT/HCPCS: 36415; 80053; 85025

== ENCOUNTER 2024-01-24 15:54 | Oncology outpatient (recurring) (ONCR) | payer BC, MEDICAID, SELFPAY ==
--- NOTE | 2024-01-24 15:54 | PETR_ITS ---
PROCEDURE INFORMATION: Exam: PET/CT Skull Base to Mid-thigh Exam date and time: 01/24/2024 4:42 PM Age: 48 years old Clinical indication: Condition or disease; Primary cancer: Anal cancer; Follow-up oncological assessment; Prior surgery; Surgery date: 1-6 months; Surgery type: Port LABS AND CLINICAL REPORTS: Glucose: 86 mg/dl Treatment strategy for malignancy (PET staging): Restaging (PS) TECHNIQUE: Imaging protocol: Following at least four-hour fasting and following the injection of radiopharmaceutical, low dose CT images were obtained. Then, PET images were obtained. Attenuation corrected images were constructed using the CT scan. Fused images of PET and CT were reviewed. The standardized uptake values (SUV) reported below are maximum values within a region of interest, expressed in gm/ml. Exam includes orbital meatal line to mid-thigh. Radiopharmaceutical: 11.7 mCi F-18 FDG (Fluorodeoxyglucose), IV. Time of imaging post radiopharmaceutical administration: 48 minutes Injection site: Right antecubital COMPARISON: CT abdomen pelvis w con* [id number] 06/20/2021 12:33 PM FINDINGS: Brain: Visualized brain has normal physiologic uptake. Pharynx: No abnormal uptake. Larynx: No abnormal uptake. Lungs, pleura and trachea: No abnormal uptake. Heart: Normal physiologic uptake. Mediastinal space: No abnormal uptake. Liver: No abnormal uptake. Gallbladder and biliary ducts: No abnormal uptake. Pancreas: No abnormal uptake. Spleen: No abnormal uptake. Adrenal glands: No abnormal uptake. Kidneys and ureters: Normal physiologic uptake. Stomach and bowel: FDG uptake at the anus shows SUV max 5.[address] mass. Reproductive: The uterus is surgically absent. Vasculature: No abnormal uptake. Lymph nodes: No abnormal uptake. No lymphadenopathy in the head, neck, chest, abdomen, pelvis, and extremities. Skeleton: No abnormal uptake in the visualized axial and appendicular skeleton. Soft tissues: Low-level linear FDG uptake adjacent to the right humeral head without underlying CT abnormality is likely inflammatory or strain. Low-level linear FDG uptake along the right iliopsoas, bilateral pelvic, and right rectus femoris musculature without underlying CT abnormality is likely physiologic or strain. PET/PET skull to thigh INIT [id number] IMPRESSION: 1. Nonspecific anal FDG uptake could be physiologic or malignant in this patient with reported anal cancer. 2. No evidence of metastatic disease.
== END 2024-02-15 23:59 | disposition home or self-care (01) ==
LOC: RAD 15:54 → ONCMED 01-28 09:31
PROVIDERS: PCP Nurse Practitioner; Visit Provider Radiology Radiation Oncology
DX: C21.1 Malignant neoplasm of anal canal (principal)
CPT/HCPCS: 78815; A9552

== ENCOUNTER 2024-01-29 07:01 | Day surgery (SDC) | payer BC, MEDICAID, SELFPAY ==
[2024-01-29 07:30] VITALS: BP 131/75; PULSE 110; RESP 16; TEMP 36.1; O2SAT 98
[2024-01-29] MEDS: sodium chloride 0.9% 1,000 ML 30 ML IV (07:34)
--- NOTE | 2024-01-29 07:40 | P.ANESASSM_ITS ---
Pre-Anesthetic Assessment Height/Weight: Height 1.6 m Weight 61.235 kg Temp Pulse Resp BP Pulse Ox O2 Del Method O2 Flow Rate 97.0 F L 110 H 16 131/75 98 Room Air 98 01/29/24 07:30 01/29/24 07:30 01/29/24 07:30 01/29/24 07:30 01/29/24 07:30 01/29/24 07:30 01/29/24 07:30 Preop Diagnosis: malignant neoplasm of anus Operation Date: 01/29/24 08:00 Proposed Procedures p Sigmoidoscopy 67580, C21.1(Not Applicable) - Víctor Michaels DO Familial anesthetic complications: PONV Was Beta Harris taken within 24 hours: N/A Was Clonidine taken within 24 hours: N/A Last intake: Intake Last Liquid Date 01/28/24 Last Liquid Time 21:00 Last Solid Date 01/27/24 Last Solid Time 21:00 Social No alcohol Exam alert, oriented x 3 and regular rate & rhythm Airway Mallampati: Class II Dentition: full History/ROS No significant history except as noted Pulmonary None reported CV/HEM None reported None reported Hepatic None reported GI malignant neoplasm of anus Metabolic None reported Musc/skel None reported Neuropsych None reported Anesthetic Plan ASA status: 2 Anesthesia: Anesthesia Evaluation and MAC Risk of > 500 ml blood loss (7ml/kg in children): No Medications/Allergies Home Medications Medication Instructions Recorded Confirmed Last Taken Type Vitamin C 1 tab PO DAILY 08/19/23 01/27/24 2 Weeks Ago History ~01/13/24 Vitamin D (with calcium) 1 tab PO DAILY 08/19/23 01/27/24 2 Weeks Ago History ~01/13/24 iron 1 tab PO DAILY 08/19/23 01/27/24 2 Weeks Ago History ~01/13/24 Allergies Allergy/AdvReac Type Severity Reaction Status Date / Time No Known Allergies Allergy Verified 11/15/23 09:17 Current Medications Generic Name Dose Route Start Last Admin Trade Name Freq PRN Reason Stop Dose Admin Sodium Chloride 1,000 mls @ 30 mls/hr 01/29/24 07:15 01/29/24 07:34 Sodium Chloride 0.9% IV 01/30/24 07:14 30 mls/hr .Q24H TETE Administration PFSH Anesthesia Medical History Iron deficiency anemia Squamous cell carcinoma of anal canal Surgical History History of left oophorectomy 1994---laparoscopic procedure with removal of left ovarian mass and drainage of right ovarian cyst. She states that the ovarian cyst was the size of a cantaloupe. Benign per patient History of tonsillectomy Tonsils and adenoids removed at the age of 17 History of wisdom tooth extraction Hx of section 1995-- delivery via Pfannenstiel incision performed in [place] Status post hysterectomy 08/03/2021---total abdominal hysterectomy, [place] for AUB with [place] [facility] [place] [facility] [place]ology showed---> benign cervix endometrium with multiple fibroids without atypia. Uterine weight-851 g Family History Father Hypertension Mother Murmur Family/Other Colon cancer maternal uncle, diagnosed at age 60 Sister Thyroid disease Denies family history of Ovarian cancer Diabetes CAD (coronary artery disease) Hyperlipidemia Breast cancer Anesthesia complication Bleeding disorder Uterine cancer Stroke Social History Smoking and tobacco/nicotine status: never used tobacco/nicotine Second hand smoke exposure: Yes Female Reproductive History Para: 1 Spontaneous abortions: No Data Anesthesia Cardiac Studies: Echocardiogram 06/20/21
--- NOTE | 2024-01-29 08:24 | PM.HP ---
Providers/Chief Complaint Primary Care Provider: Cici Read APN Chief Complaint: C21.1 History of Present Illness Genesis aDvid is a 48 year old female Review of Systems General: Reports: 10 or more systems reviewed and unremarkable except in HPI and below Medications/Allergies Home Medications Medication Instructions Recorded Confirmed Last Taken Type Vitamin C 1 tab PO DAILY 08/19/23 01/27/24 2 Weeks Ago History ~01/13/24 Vitamin D (with calcium) 1 tab PO DAILY 08/19/23 01/27/24 2 Weeks Ago History ~01/13/24 iron 1 tab PO DAILY 08/19/23 01/27/24 2 Weeks Ago History ~01/13/24 Allergies Allergy/AdvReac Type Severity Reaction Status Date / Time No Known Allergies Allergy Verified 11/15/23 09:17 PFSH Acute PFSH: Medical History Iron deficiency anemia Squamous cell carcinoma of anal canal Surgical History History of left oophorectomy 1994---laparoscopic procedure with removal of left ovarian mass and drainage of right ovarian cyst. She states that the ovarian cyst was the size of a cantaloupe. Benign per patient History of tonsillectomy Tonsils and adenoids removed at the age of 17 History of wisdom tooth extraction Hx of section 1995-- delivery via Pfannenstiel incision performed in [place] Status post hysterectomy 08/03/2021---total abdominal hysterectomy, bilateral salpingectomy for AUB with fibroid uterus by Dr. Rudd at [facility] [place]. Pathology showed---> benign cervix endometrium with multiple fibroids without atypia. Uterine weight-851 g Family History Father Hypertension Mother Murmur Family/Other Colon cancer maternal uncle, diagnosed at age 60 Sister Thyroid disease Denies family history of Ovarian cancer Diabetes CAD (coronary artery disease) Hyperlipidemia Breast cancer Anesthesia complication Bleeding disorder Uterine cancer Stroke Social History Smoking and tobacco/nicotine status: never used tobacco/nicotine Second hand smoke exposure: Yes Female Reproductive History: Para: 1 Spontaneous abortions: No Vitals/I&O/Wt Last Vital Signs Temp 97.0 F L 01/29/24 07:30 Pulse 110 H 01/29/24 07:30 Resp 16 01/29/24 07:30 BP 131/75 01/29/24 07:30 Pulse Ox 98 01/29/24 07:30 O2 Del Method Room Air 01/29/24 07:30 O2 Flow Rate 98 01/29/24 07:30 Weight last 48 hrs Weight 135 lb A&P Assessment and plan (1) Squamous cell carcinoma of anal canal: Plan Sigmoidoscopy Attestations Medical Necessity Statement*: Home Coding Level of Care Code Acute Code for Chg Fwd Diagnoses Squamous cell carcinoma of anal canal C21.1
[2024-01-29] MEDS: lidocaine-epi 1% PF 1:200,000 30 mL SDV INJECTION (08:48)
[2024-01-29 08:53] VITALS: BP 141/77; PULSE 96; RESP 16; TEMP 36.1; O2SAT 100
[2024-01-29 09:07] VITALS: RESP 17; O2SAT 100
[2024-01-29] MEDS: HYDROmorphone 1 mg/mL INJ 1 mL 0.5 MG IVP (09:07)
[2024-01-29 09:47] VITALS: BP 122/75; PULSE 71; RESP 181; O2SAT 100
--- NOTE | 2024-01-29 09:54 | ANE.PACU2 ---
Inpatient post-anesthesia follow up: Airway intact: Yes Vital signs: Temperature 97.0 F Pulse Rate 71 Respiratory Rate 181 Blood Pressure 122/75 Pulse Oximetry 100 Oxygen Delivery Me thod Room Air Oxygen Flow Rate 98 Fraction of Inspir ed Oxygen Hydration adequate: Yes Nausea and vomiting: No Pain level: 1 Mental status: Baseline
== END 2024-01-29 09:54 | disposition home or self-care (01) ==
PROVIDERS: PCP Nurse Practitioner; Visit Provider Surgery
PROC: 0DJD8ZZ Inspection of Lower Intestinal Tract, Via Natural or Artificial Opening Endoscopic (ICD-10-PCS; CPT 45330; principal; 2024-01-29 08:00)
DX: C21.1 Malignant neoplasm of anal canal (principal); C21.8 Malignant neoplasm of overlapping sites of rectum, anus and anal canal
CPT/HCPCS: 45330; 88305; J1171; J2704; J7030

== ENCOUNTER → 2025-02-18 14:48 | Outpatient (BNVA) | payer BC, MEDICAID, SELFPAY | PROVIDERS: PCP Nurse Practitioner; Visit Provider Nurse Practitioner | DX: R53.83 Other fatigue (principal) | CPT/HCPCS: 80048; 82306; 82672; 83001; 84443; 85025 ==